=== PATIENT | female | born 1965 | race Caucasian/White ===

== ENCOUNTER 2016-10-28 12:38 | Emergency (ER) | payer MEDICARE, MEDICAID ==
[~2016-10-28] VITALS: Ht 165.1 cm; Wt 79.4 kg
[~2016-10-28 12:38] MED LIST: BACL-63 PO; BENZ1TAB2 PO; DIVA500T12 PO; LEVAAER4; LEVO100T8 PO; OMEP20CA74 PO; PAROXETINE 30 MG PO; PRIM250T29 PO; RISP0.5T21; RISP0.5T45; TOPI50TA53 PO
[2016-10-28 13:48] VITALS: BP 98/58
== END 2016-10-28 14:12 | disposition home or self-care (01) ==
LOC: ER 12:43
DX: R56.9 Unspecified convulsions (principal); J45.909 Unspecified asthma, uncomplicated; F17.210 Nicotine dependence, cigarettes, uncomplicated; Z98.51 Tubal ligation status; Z88.0 Allergy status to penicillin; Z88.1 Allergy status to other antibiotic agents; Z91.041 Radiographic dye allergy status; Z79.899 Other long term (current) drug therapy; Z90.710 Acquired absence of both cervix and uterus

== ENCOUNTER 2017-03-27 11:16 | Emergency (ER) | payer OTHER, MEDICAID ==
[~2017-03-27] VITALS: Ht 162.6 cm; Wt 78.0 kg
[~2017-03-27 11:16] MED LIST changes: +RISP0.5T20; -RISP0.5T21
[2017-03-27 12:04] LABS: Urine WBC None Seen /hpf (0 - 5)
[2017-03-27 12:12] LABS: Basophils # (auto) 0 uL; Basophils % (auto) 0.4 % (0.0-2.0); Eosinophils # (auto) 0.3 uL; Eosinophils % (auto) 4.5 % (0.0-7.0); Hematocrit 43.5 % (36.0-46.0); Hemoglobin 14.5 g/dL (12.2-16.2); Lymphocytes # (auto) 2.6 uL; Lymphocytes % (auto) 43.6 % (10.0-50.0); Mean Corpuscular Hemoglobin 31.8 pg (28.0-32.0); Mean Corpuscular Hgb Conc. 33.2 g/dL (32.0-36.0); Mean Corpuscular Volume 95.6 fL (80.0-100.0); Monocytes # (auto) 0.5 uL; Monocytes % (auto) 8.3 % (0.0-12.0); Neutrophils # (auto) 2.6 uL; Neutrophils % (auto) 43.2 % (37.0-80.0); Nucleated Red Blood Cells % 0.6 %; Platelet Count (auto) 185 10^3/uL (140-450); Red Blood Cells 4.56 10^6/uL (4.0-5.20); Red Cell Distribution Width 14.6 % (11.8-14.3)
[2017-03-27 12:21] LABS: Urine Bacteria NONE SEEN /hpf (None Seen); Urine Blood Negative /uL (Negative)
[2017-03-27 12:36] LABS: Alanine Aminotransferase 27 U/L (13-56); Albumin 3.7 g/dL (3.4-5.0); Anion Gap 8 (5-15); Aspartate Aminotransferase 23 U/L (15-37); BUN/Creatinine Ratio 13.3; Blood Urea Nitrogen 10 mg/dL (7-18); Calcium 8.9 mg/dL (8.5-10.1); Carbon Dioxide 22 mmol/L (21-32); Chloride 111 mmol/L (98-107); GFR African American 105 mL/min; GFR Non-African American 87 mL/min; Glucose 95 mg/dL (74-106); Potassium 4.2 mmol/L (3.5-5.1); Sodium 141 mmol/L (136-145)
[2017-03-27 12:41] LABS: Alkaline Phosphatase 81 U/L (45-117); Bilirubin, Total 0.3 mg/dL (0.2-1.0); Total Protein 6.9 g/dL (6.4-8.2)
[2017-03-27 13:30] VITALS: BP 119/77
== END 2017-03-27 13:55 | disposition home or self-care (01) ==
LOC: ER 11:16
DX: F41.8 Other specified anxiety disorders (principal); K64.8 Other hemorrhoids; J45.909 Unspecified asthma, uncomplicated; F17.210 Nicotine dependence, cigarettes, uncomplicated; Z88.0 Allergy status to penicillin; Z86.73 Personal history of transient ischemic attack (TIA), and cerebral infarction without residual deficits; Z88.1 Allergy status to other antibiotic agents; Z91.041 Radiographic dye allergy status; Z79.899 Other long term (current) drug therapy
CPT/HCPCS: 36415; 74176; 80053; 81001; 84484; 85025

== ENCOUNTER 2017-04-30 16:09 | Inpatient (IN) | payer OTHER, MEDICAID ==
[~2017-04-30] VITALS: Ht 165.1 cm; Wt 79.5 kg
[2017-04-30 04:39] VITALS: BP 115/68
[2017-04-30 17:12] LABS: Basophils # (auto) 0.1 uL; Basophils % (auto) 0.9 % (0.0-2.0); Eosinophils # (auto) 0.3 uL; Eosinophils % (auto) 3.1 % (0.0-7.0); Hematocrit 44.3 % (36.0-46.0); Lymphocytes # (auto) 5.4 uL; Mean Corpuscular Hemoglobin 32.5 pg (28.0-32.0); Mean Corpuscular Hgb Conc. 33.8 g/dL (32.0-36.0); Mean Corpuscular Volume 96.3 fL (80.0-100.0); Monocytes # (auto) 0.6 uL; Monocytes % (auto) 6.8 % (0.0-12.0); Neutrophils # (auto) 3.1 uL; Neutrophils % (auto) 32.9 % (37.0-80.0); Nucleated Red Blood Cells % 0.2 %; Platelet Count (auto) 201 10^3/uL (140-450); Red Cell Distribution Width 14.2 % (11.8-14.3); White Blood Cell 9.6 10^3/uL (4.4-10.8)
[2017-04-30 17:18] LABS: Lymphocytes % (auto) 56.3 % (10.0-50.0)
[2017-04-30 17:37] LABS: Albumin 3.7 g/dL (3.4-5.0); BUN/Creatinine Ratio 19.8; Bilirubin, Total 0.2 mg/dL (0.2-1.0); Calcium 8.1 mg/dL (8.5-10.1); Potassium 3.9 mmol/L (3.5-5.1)
[2017-04-30 18:07] LABS: Salicylate < 1.7 mg/dL (2.8-20.0)
[2017-04-30] MEDS ORDERED: ONDANSETRON HCL 4 MG/2 ML VIAL IV ONE (18:45)
[2017-04-30 18:50] LABS: Urine Bacteria FEW /hpf (None Seen); Urine Blood Negative /uL (Negative); Urine Specific Gravity 1.009 (1.001-1.035); Urine WBC 11 /hpf (0 - 5)
[2017-04-30 19:23] LABS: Alcohol, Urine < 3.0 mg/dL (0-5); Amphetamine Screen, Urine NEGATIVE (NEGATIVE); Barbiturate Scree,Urine POSITIVE (NEGATIVE); Benzodiazephine Screen, Urine NEGATIVE (NEGATIVE); Cannabinoid Screen, Urine NEGATIVE (NEGATIVE); Cocaine Screen, Urine NEGATIVE (NEGATIVE); Opiate Scree,Urine POSITIVE (NEGATIVE); Phencyclidine Screen, Urine NEGATIVE (NEGATIVE)
[2017-04-30 21:11] LABS: Valproic Acid (Depakene) 58.4 ug/mL (50-100)
[2017-04-30 22:42] LABS: Salicylate < 1.7 mg/dL (2.8-20.0)
[2017-04-30 22:54] LABS: Acetaminophen 46.9 ug/mL (10-30)
[2017-04-30] MEDS ORDERED: ONDANSETRON HCL 4 MG/2 ML VIAL IV PRN (23:00)
[2017-04-30] MEDS ORDERED: D5W 5% IV ONE (23:30)
[2017-04-30] MEDS ORDERED: ACETYLCYSTEINE IV ONE (23:30)
[2017-04-30] MEDS ORDERED: ACETYLCYSTEINE 200MG/ML IV SOLN 30ML IV ONE (23:57)
[2017-05-01] MEDS ORDERED: LORazepam 2MG/ML-1ML VIAL IV PRN
[2017-05-01] MEDS ORDERED: cefTRIAXone 1GM/10ml IVPUSH 10 ML IV ONE
[2017-05-01] MEDS ORDERED: D5W 5% IV ONE (00:30)
[2017-05-01] MEDS ORDERED: ACETYLCYSTEINE IV ONE (00:30)
[2017-05-01] MEDS ORDERED: LACTULOSE 20Gm/30ML SOLN PO ONE (00:45)
[2017-05-01 01:37] LABS: Valproic Acid (Depakene) 64.4 ug/mL (50-100)
[2017-05-01 02:44] LABS: Basophils # (auto) 0.1 uL; Basophils % (auto) 1.3 % (0.0-2.0); Eosinophils # (auto) 0.2 uL; Eosinophils % (auto) 2.1 % (0.0-7.0); Hematocrit 39.3 % (36.0-46.0); Hemoglobin 13.4 g/dL (12.2-16.2); Lymphocytes # (auto) 1.9 uL; Lymphocytes % (auto) 20.1 % (10.0-50.0); Mean Corpuscular Hemoglobin 32.1 pg (28.0-32.0); Mean Corpuscular Volume 94.3 fL (80.0-100.0); Monocytes # (auto) 0.3 uL; Monocytes % (auto) 3.3 % (0.0-12.0); Neutrophils # (auto) 6.9 uL; Neutrophils % (auto) 73.2 % (37.0-80.0); Platelet Count (auto) 143 10^3/uL (140-450); Red Blood Cells 4.17 10^6/uL (4.0-5.20); Red Cell Distribution Width 13.9 % (11.8-14.3); White Blood Cell 9.4 10^3/uL (4.4-10.8)
[2017-05-01 03:07] LABS: Acetaminophen 10.3 ug/mL (10-30); Salicylate < 1.7 mg/dL (2.8-20.0)
[2017-05-01 03:08] LABS: Albumin 2.9 g/dL (3.4-5.0); BUN/Creatinine Ratio 17.5; Bilirubin, Total 0.3 mg/dL (0.2-1.0); Calcium 7.3 mg/dL (8.5-10.1); Potassium 4.1 mmol/L (3.5-5.1); Total Protein 5.6 g/dL (6.4-8.2)
[2017-05-01] MEDS ORDERED: D5W 5% IV SCH ×2 (04:30→07:15)
[2017-05-01] MEDS ORDERED: ACETYLCYSTEINE IV SCH ×2 (04:30→07:15)
[2017-05-01 04:47] LABS: Valproic Acid (Depakene) 44.6 ug/mL (50-100)
[2017-05-01] MEDS: LEVOTHYROXINE SODIUM 100 MCG TAB PO SCH (06:59)
[2017-05-01 08:00] VITALS: BP 118/43
[2017-05-01 08:09] LABS: BUN/Creatinine Ratio 15.7; Bilirubin, Total 0.3 mg/dL (0.2-1.0); Calcium 7.8 mg/dL (8.5-10.1); Potassium 3.9 mmol/L (3.5-5.1); Total Protein 6.2 g/dL (6.4-8.2)
[2017-05-01 12:00] VITALS: BP 102/40
[2017-05-01] MEDS ORDERED: OXYB15TA12 PO (13:09)
[2017-05-01] MEDS ORDERED: OXYC325T14 PO (13:09)
[2017-05-01] MEDS ORDERED: IBUP600T27 PO (13:09)
[2017-05-01 15:44] VITALS: BP 93/50
[2017-05-01 20:00] VITALS: BP 92/49
[2017-05-01] MEDS ORDERED: cefTRIAXone 1GM/10ml IVPUSH 10 ML IV SCH (22:00)
[2017-05-01 22:45] VITALS: BP 92/46
[2017-05-02 05:22] VITALS: BP 81/48
[2017-05-02 06:19] VITALS: BP 116/52
[2017-05-02] MEDS: LEVOTHYROXINE SODIUM 100 MCG TAB PO SCH (06:44)
[2017-05-02 09:00] VITALS: BP 94/57
[2017-05-02] MEDS: OXYBUTYNIN CHL 5 MG TAB PO SCH ×2 (12:45→21:36)
[2017-05-02 13:00] VITALS: BP 96/58
[2017-05-02 17:00] VITALS: BP 99/53
[2017-05-02 22:00] VITALS: BP 103/61
[2017-05-03 06:00] VITALS: BP 101/61
[2017-05-03] MEDS: LEVOTHYROXINE SODIUM 100 MCG TAB PO SCH (06:35)
[2017-05-03 08:22] VITALS: BP 108/64
[2017-05-03] MEDS: OXYBUTYNIN CHL 5 MG TAB PO SCH (09:42)
[2017-05-03 13:51] VITALS: BP 101/69
== END 2017-05-03 21:39 | disposition psychiatric hospital, planned readmission (93) | DRG 917 ==
LOC: EDBD 16:09 → ER 16:09 → OVERFLOW 16:10 → DOU IN ICU 23:50 → EAST 05-01 22:29
PROVIDERS: ADMIT Nurse Practitioner Family; ATTEND Internal Medicine
DX: T39.1X2A Poisoning by 4-Aminophenol derivatives, intentional self-harm, initial encounter (principal); G92 Toxic encephalopathy; N39.0 Urinary tract infection, site not specified; K72.90 Hepatic failure, unspecified without coma; E03.9 Hypothyroidism, unspecified; F10.10 Alcohol abuse, uncomplicated; F17.210 Nicotine dependence, cigarettes, uncomplicated; F31.9 Bipolar disorder, unspecified; J45.909 Unspecified asthma, uncomplicated; Z79.899 Other long term (current) drug therapy; Y92.89 Other specified places as the place of occurrence of the external cause; Z85.43 Personal history of malignant neoplasm of ovary; Z86.73 Personal history of transient ischemic attack (TIA), and cerebral infarction without residual deficits; Z90.710 Acquired absence of both cervix and uterus
CPT/HCPCS: 36415; 80053; 80164; 80184; 80307; 80329; 81001; 82140; 84443; 85025; 87081; 87086; 93005; 94761; 96365; 96375; J2405; J7060

== ENCOUNTER 2020-12-25 07:11 | Emergency (ER) | payer OTHER, MEDICAID ==
[~2020-12-25] VITALS: Ht 162.6 cm; Wt 76.2 kg
[~2020-12-25 07:11] MED LIST changes: -BACL-63 PO; -LEVAAER4; +OXYB15TA12 PO; -RISP0.5T20; -TOPI50TA53 PO
[2020-12-25 07:28] VITALS: BP 105/41
[2020-12-25] MEDS ORDERED: cefTRIAXone 1GM/50ML D5W 50 ML IV ONE (07:45)
[2020-12-25] MEDS ORDERED: CLINDAMYCIN 600MG IV 50 ML IV ONE (07:45)
== END 2020-12-25 09:17 | disposition home or self-care (01) ==
LOC: ER 07:11
DX: L03.115 Cellulitis of right lower limb (principal); J45.909 Unspecified asthma, uncomplicated; E03.9 Hypothyroidism, unspecified; Z86.73 Personal history of transient ischemic attack (TIA), and cerebral infarction without residual deficits; Z90.710 Acquired absence of both cervix and uterus; Z87.891 Personal history of nicotine dependence; Z79.899 Other long term (current) drug therapy; Z88.0 Allergy status to penicillin; Z88.1 Allergy status to other antibiotic agents; Z88.8 Allergy status to other drugs, medicaments and biological substances
CPT/HCPCS: 96365; 96367; 99284; J0696; J3490

== ENCOUNTER 2020-12-26 08:05 | Emergency (ER) | payer OTHER, MEDICAID ==
[~2020-12-26] VITALS: Ht 162.6 cm; Wt 76.2 kg
[2020-12-26] MEDS ORDERED: CLINDAMYCIN 900MG IV 50 ML IV ONE (12:15)
[2020-12-26 12:45] VITALS: BP 110/68
== END 2020-12-26 12:48 | disposition home or self-care (01) ==
LOC: ER 08:05
DX: L03.115 Cellulitis of right lower limb (principal); J45.909 Unspecified asthma, uncomplicated; Z98.51 Tubal ligation status; Z90.710 Acquired absence of both cervix and uterus; Z88.1 Allergy status to other antibiotic agents; Z88.0 Allergy status to penicillin
CPT/HCPCS: 96374; 99283; J3490

== ENCOUNTER 2021-10-24 17:42 | Inpatient (IN) | payer OTHER, MEDICAID ==
[~2021-10-24] VITALS: Ht 162.6 cm; Wt 76.6 kg
[2021-10-24 18:34] LABS: Basophils # (auto) 0 10 ^3/uL (0-0.2); Basophils % (auto) 0.6 % (0.0-2.0); Eosinophils # (auto) 0.1 10 ^3/uL (0-0.8); Eosinophils % (auto) 2.4 % (0.0-7.0); Hematocrit 40.8 % (36.0-46.0); Hemoglobin 13.5 g/dL (12.2-16.2); Lymphocytes # (auto) 2.4 10 ^3/uL (0.4-5.4); Lymphocytes % (auto) 40.2 % (10.0-50.0); Mean Corpuscular Hemoglobin 29.4 pg (28.0-32.0); Mean Corpuscular Hgb Conc. 33.1 g/dL (32.0-36.0); Mean Corpuscular Volume 88.7 fL (80.0-100.0); Monocytes # (auto) 0.4 10 ^3/uL (0-1.3); Monocytes % (auto) 6.9 % (0.0-12.0); Neutrophils % (auto) 49.9 % (37.0-80.0); Red Cell Distribution Width 13.5 % (11.8-14.3)
[2021-10-24 19:08] LABS: Albumin 4.1 g/dL (3.4-5.0); BUN/Creatinine Ratio 13.8; Calcium 8.6 mg/dL (8.5-10.1); Potassium 3.6 mmol/L (3.5-5.1)
[2021-10-24 19:11] LABS: Bilirubin, Total 0.5 mg/dL (0.2-1.0); Total Protein 7.3 g/dL (6.4-8.2)
[2021-10-24] MEDS ORDERED: ASPirin 81 mg TAB PO ONE (20:15)
[2021-10-24] MEDS ORDERED: NITROGLYCERIN 0.4 MG SL TAB SL PRN (22:00)
[2021-10-24] MEDS ORDERED: ACETAMINOPHEN 325 MG TAB PO PRN (22:00)
[2021-10-24] MEDS ORDERED: ONDANSETRON HCL 4 MG/2 ML VIAL IV PRN (22:00)
[2021-10-24] MEDS ORDERED: TEMAZEPAM 15 MG CAP PO PRN (22:00)
[2021-10-25] MEDS: ATORVASTATIN 20 MG TAB PO SCH ×2 (00:43→22:32)
[2021-10-25] MEDS: MORPHINE SULFATE INJ 2 MG/ml SYRG IV PRN (01:00)
[2021-10-25] MEDS ORDERED: SODIUM CHLORIDE 0.9% 500 ML IV ONE ×2 (03:30→11:00)
[2021-10-25 05:09] LABS: BUN/Creatinine Ratio 12.9; Calcium 8.1 mg/dL (8.5-10.1); Potassium 3.4 mmol/L (3.5-5.1)
[2021-10-25 05:10] LABS: Basophils # (auto) 0 10 ^3/uL (0-0.2); Basophils % (auto) 0.3 % (0.0-2.0); Eosinophils # (auto) 0.2 10 ^3/uL (0-0.8); Eosinophils % (auto) 3.3 % (0.0-7.0); Hematocrit 40.2 % (36.0-46.0); Hemoglobin 13.7 g/dL (12.2-16.2); Lymphocytes # (auto) 2.5 10 ^3/uL (0.4-5.4); Lymphocytes % (auto) 38.9 % (10.0-50.0); Mean Corpuscular Hemoglobin 30.1 pg (28.0-32.0); Mean Corpuscular Hgb Conc. 34.1 g/dL (32.0-36.0); Mean Corpuscular Volume 88.3 fL (80.0-100.0); Monocytes # (auto) 0.6 10 ^3/uL (0-1.3); Monocytes % (auto) 9.3 % (0.0-12.0); Neutrophils # (auto) 3.1 10 ^3/uL (1.6-8.6); Neutrophils % (auto) 48.2 % (37.0-80.0); Nucleated Red Blood Cells % 0.2 %; Red Blood Cells 4.55 10^6/uL (4.0-5.20); Red Cell Distribution Width 13.7 % (11.8-14.3); White Blood Cell 6.4 10^3/uL (4.4-10.8)
[2021-10-25] MEDS: LEVOTHYROXINE SODIUM 100 MCG TAB PO SCH (07:00)
[2021-10-25] MEDS ORDERED: SODIUM CHLORIDE 0.9% 1,000 ML IV ONE ×2 (09:00→13:00)
[2021-10-25] MEDS ORDERED: LISINOPRIL 5 MG TAB PO SCH (10:00)
[2021-10-25] MEDS ORDERED: PANTOPRAZOLE 40 MG TAB PO SCH (10:00)
[2021-10-25] MEDS: ASPirin 81 mg TAB PO SCH (10:51)
[2021-10-25] MEDS: ENOXAPARIN SOD 40 MG/0.4 ML SYRINGE SC SCH (10:54)
[2021-10-25] MEDS ORDERED: POTASSIUM CHL 20 Meq TABLET PO ONE (11:15)
[2021-10-25 13:18] LABS: Cholesterol 144 mg/dL (< 200)
[2021-10-25 13:22] LABS: HDL Cholesterol 69 mg/dL (40-59); LDL Cholesterol 62 mg/dL (< 100); Triglycerides 104 mg/dL (< 150)
[2021-10-25] MEDS ORDERED: OXCA300T50 OR (15:49)
[2021-10-25] MEDS ORDERED: QUET50TA PO (15:49)
[2021-10-25] MEDS ORDERED: CHOLPOW45 XX (15:49)
[2021-10-25] MEDS ORDERED: HYDR-3682 PO (15:49)
[2021-10-25] MEDS ORDERED: BUSP5TAB51 PO (15:49)
[2021-10-25] MEDS ORDERED: ATOR10TA52 PO (15:49)
[2021-10-25 17:17] VITALS: BP 99/58
[2021-10-25 22:00] VITALS: BP 92/46
[2021-10-25] MEDS: ALBUMIN 25% 100 ML IV SCH (22:32)
[2021-10-25 23:20] LABS: Urine Bacteria NONE SEEN /hpf (None Seen); Urine Blood Negative /uL (Negative); Urine Specific Gravity 1.005 (1.001-1.035); Urine WBC 1 /hpf (0 - 5)
[2021-10-26] MEDS: ALBUMIN 25% 100 ML IV SCH (01:06)
[2021-10-26 05:00] VITALS: BP 109/52
[2021-10-26] MEDS: LEVOTHYROXINE SODIUM 100 MCG TAB PO SCH (06:27)
[2021-10-26] MEDS ORDERED: GIVE UN DILUTED IV STA (07:47)
[2021-10-26] MEDS ORDERED: ADENOSINE IV STA (07:47)
[2021-10-26] MEDS ORDERED: ADENOSINE 64 MG in GIVE UN-DILUTED 0 ML IV ONE (08:45)
[2021-10-26 09:00] VITALS: BP 114/48
[2021-10-26] MEDS: ASPirin 81 mg TAB PO SCH (10:27)
[2021-10-26] MEDS: ENOXAPARIN SOD 40 MG/0.4 ML SYRINGE SC SCH (10:28)
[2021-10-26 12:30] VITALS: BP 102/54
[2021-10-26] MEDS ORDERED: ATOR10TA PO (12:45)
[2021-10-26] MEDS: MORPHINE SULFATE INJ 2 MG/ml SYRG IV PRN (15:42)
[2021-10-26 16:50] VITALS: BP 99/58
[2021-10-26] MEDS ORDERED: QUEtiapine FUMARATE 25 MG TAB PO SCH (18:00)
[2021-10-26] MEDS ORDERED: ATORVASTATIN 20 MG TAB PO SCH (18:00)
[2021-10-26 19:10] VITALS: BP 99/58
[2021-10-26] MEDS ORDERED: PRIMIDONE 50 MG TAB PO SCH (22:00)
[2021-10-26] MEDS ORDERED: PARoxetine 20 MG TAB PO SCH (22:00)
[2021-10-26] MEDS ORDERED: busPIRone HCL 10 MG TAB PO SCH (22:00)
[2021-10-26] MEDS ORDERED: BENZTROPINE MESY 0.5 MG TAB PO SCH (22:00)
[2021-10-26] MEDS ORDERED: hydrOXYzine 25 MG TAB or CAP PO SCH (22:00)
[2021-10-27] MEDS ORDERED: OMEPRAZOLE 20MG/10ML ORAL SUSP PO SCH (10:00)
[2021-10-27] MEDS ORDERED: OXYBUTYNIN CHL 5 MG TAB PO SCH (10:00)
[2021-10-27] MEDS ORDERED: PATIENTS OWN MEDICATION (Atorvastatin Calcium 1 TAB) PO SCH (10:00)
== END 2021-10-26 19:55 | disposition home or self-care (01) | DRG 206 ==
LOC: ER 17:45 → TELE 21:59 → TELE-CENTR 10-25 15:00
PROVIDERS: ADMIT Nurse Practitioner; ATTEND Internal Medicine
DX: M94.0 Chondrocostal junction syndrome [Tietze] (principal); R07.89 Other chest pain; E78.5 Hyperlipidemia, unspecified; J45.909 Unspecified asthma, uncomplicated; Z20.822 Contact with and (suspected) exposure to COVID-19; E07.9 Disorder of thyroid, unspecified; F25.9 Schizoaffective disorder, unspecified; Z87.891 Personal history of nicotine dependence; Z85.43 Personal history of malignant neoplasm of ovary; Z86.73 Personal history of transient ischemic attack (TIA), and cerebral infarction without residual deficits; Z90.710 Acquired absence of both cervix and uterus; Z88.0 Allergy status to penicillin; Z88.8 Allergy status to other drugs, medicaments and biological substances
CPT/HCPCS: 36415; 71045; 78452; 80048; 80053; 80061; 81001; 83036; 83735; 83880; 84443; 84484; 85025; 93005; 93017; 93306; 96361; 96372; 96374; G0378; J0153; P9047

== ENCOUNTER 2021-11-08 08:42 | Emergency (ER) | payer OTHER, MEDICAID ==
[~2021-11-08] VITALS: Ht 165.1 cm; Wt 75.0 kg
[2021-11-08 08:42] VITALS: BP 117/64
[~2021-11-08 08:42] MED LIST changes: +ATOR10TA PO; +ATOR10TA52 PO; +BUSP5TAB51 PO; +HYDR-3682 PO; +OXCA300T50 OR; +QUET50TA PO
[2021-11-08] MEDS ORDERED: CYCL-837 PO (13:29)
[2021-11-08] MEDS ORDERED: NAP500T PO (13:29)
[2021-11-08] MEDS ORDERED: KETOROLAC TROMETH 60MG/2ML VIAL IM ONE (13:45)
== END 2021-11-08 14:08 | disposition home or self-care (01) ==
LOC: EDBD 08:42 → ER 08:42
DX: S39.012A Strain of muscle, fascia and tendon of lower back, initial encounter (principal); E78.5 Hyperlipidemia, unspecified; J45.909 Unspecified asthma, uncomplicated; Z88.0 Allergy status to penicillin; Z88.1 Allergy status to other antibiotic agents; Z86.73 Personal history of transient ischemic attack (TIA), and cerebral infarction without residual deficits; Z98.51 Tubal ligation status; Z90.710 Acquired absence of both cervix and uterus; Z87.891 Personal history of nicotine dependence; Y04.2XXA Assault by strike against or bumped into by another person, initial encounter; Y93.89 Activity, other specified; Y92.89 Other specified places as the place of occurrence of the external cause; Y99.8 Other external cause status
CPT/HCPCS: 72100; 96372; 99283; J1885

== ENCOUNTER 2021-11-10 05:00 | Emergency (ER) | payer OTHER, MEDICAID ==
[~2021-11-10] VITALS: Ht 162.6 cm; Wt 77.0 kg
[~2021-11-10 05:00] MED LIST changes: +CYCL-837 PO; +NAP500T PO
[2021-11-10 05:57] VITALS: BP 120/65
[2021-11-10] MEDS ORDERED: HYDROcodone-ACET 5/325MG TAB PO ONE (07:30)
[2021-11-10] MEDS ORDERED: MELO7.5T9 PO (08:00)
== END 2021-11-10 08:00 | disposition home or self-care (01) ==
LOC: EDBD 05:00 → ER 05:00
DX: S76.011A Strain of muscle, fascia and tendon of right hip, initial encounter (principal); M17.11 Unilateral primary osteoarthritis, right knee; E03.9 Hypothyroidism, unspecified; E78.5 Hyperlipidemia, unspecified; J45.909 Unspecified asthma, uncomplicated; Z87.891 Personal history of nicotine dependence; Z90.710 Acquired absence of both cervix and uterus; Z79.899 Other long term (current) drug therapy; Z88.0 Allergy status to penicillin; Z88.1 Allergy status to other antibiotic agents; Z88.8 Allergy status to other drugs, medicaments and biological substances; W18.39XA Other fall on same level, initial encounter; Y93.89 Activity, other specified; Y92.89 Other specified places as the place of occurrence of the external cause; Y99.8 Other external cause status
CPT/HCPCS: 73502; 73562

== ENCOUNTER 2021-12-04 14:25 | Emergency (ER) | payer OTHER, MEDICAID ==
[~2021-12-04] VITALS: Ht 162.6 cm; Wt 58.9 kg
[~2021-12-04 14:25] MED LIST changes: +MELO7.5T9 PO
[2021-12-04 20:14] LABS: Basophils # (auto) 0 10 ^3/uL (0-0.2); Basophils % (auto) 0.1 % (0.0-2.0); Eosinophils # (auto) 0.3 10 ^3/uL (0-0.8); Eosinophils % (auto) 3.7 % (0.0-7.0); Hematocrit 43.7 % (36.0-46.0); Hemoglobin 14.9 g/dL (12.2-16.2); Lymphocytes # (auto) 2.3 10 ^3/uL (0.4-5.4); Lymphocytes % (auto) 27.3 % (10.0-50.0); Mean Corpuscular Hemoglobin 30.2 pg (28.0-32.0); Mean Corpuscular Volume 88.7 fL (80.0-100.0); Monocytes # (auto) 0.4 10 ^3/uL (0-1.3); Monocytes % (auto) 5.2 % (0.0-12.0); Neutrophils # (auto) 5.3 10 ^3/uL (1.6-8.6); Neutrophils % (auto) 63.7 % (37.0-80.0); Nucleated Red Blood Cells % 0.1 %; Red Blood Cells 4.93 10^6/uL (4.0-5.20); Red Cell Distribution Width 14.1 % (11.8-14.3); White Blood Cell 8.3 10^3/uL (4.4-10.8)
[2021-12-04 20:24] LABS: INR 0.9 (0.9-1.15)
[2021-12-04] MEDS ORDERED: CEPH-322 PO (20:34)
[2021-12-04 20:41] LABS: Anion Gap 15 (5-15); Blood Urea Nitrogen 14 mg/dL (7-18); Carbon Dioxide 21 mmol/L (21-32); Chloride 103 mmol/L (98-107); Glucose 79 mg/dL (74-106); Potassium 3.5 mmol/L (3.5-5.1); Sodium 139 mmol/L (136-145)
[2021-12-04 20:42] LABS: Alanine Aminotransferase 60 U/L (13-56); Alkaline Phosphatase 112 U/L (45-117); Aspartate Aminotransferase 52 U/L (15-37); BUN/Creatinine Ratio 16.9; Bilirubin, Total 0.5 mg/dL (0.2-1.0); Calcium 8.2 mg/dL (8.5-10.1); GFR African American 91 mL/min; GFR Non-African American 76 mL/min; Total Protein 7.8 g/dL (6.4-8.2)
[2021-12-04 21:30] VITALS: BP 102/59
== END 2021-12-04 22:20 | disposition home or self-care (01) ==
LOC: EDBD 14:25 → ER 14:25
DX: L03.115 Cellulitis of right lower limb (principal)
CPT/HCPCS: 36415; 73590; 80053; 84702; 85025; 85610; 93005; 93971

== ENCOUNTER 2021-12-07 22:05 | Inpatient (IN) | payer OTHER, MEDICAID ==
[~2021-12-07] VITALS: Ht 165.1 cm; Wt 80.5 kg
[~2021-12-07 22:05] MED LIST changes: +CEPH-322 PO
[2021-12-08 00:03] LABS: Basophils # (auto) 0 10 ^3/uL (0-0.2); Basophils % (auto) 0.1 % (0.0-2.0); Eosinophils # (auto) 0.2 10 ^3/uL (0-0.8); Hematocrit 35.5 % (36.0-46.0); Hemoglobin 12.2 g/dL (12.2-16.2); Lymphocytes # (auto) 2.3 10 ^3/uL (0.4-5.4); Lymphocytes % (auto) 22.6 % (10.0-50.0); Mean Corpuscular Hemoglobin 30.4 pg (28.0-32.0); Mean Corpuscular Hgb Conc. 34.3 g/dL (32.0-36.0); Mean Corpuscular Volume 88.6 fL (80.0-100.0); Monocytes # (auto) 0.7 10 ^3/uL (0-1.3); Monocytes % (auto) 6.4 % (0.0-12.0); Neutrophils # (auto) 7.1 10 ^3/uL (1.6-8.6); Neutrophils % (auto) 68.9 % (37.0-80.0); Red Blood Cells 4.01 10^6/uL (4.0-5.20); Red Cell Distribution Width 14.1 % (11.8-14.3); White Blood Cell 10.3 10^3/uL (4.4-10.8)
[2021-12-08 00:16] LABS: Urine Bacteria NONE SEEN /hpf (None Seen); Urine Blood Negative /uL (Negative); Urine Specific Gravity 1.007 (1.001-1.035); Urine WBC <1 /hpf (0 - 5)
[2021-12-08 00:18] LABS: Albumin 3.2 g/dL (3.4-5.0); Calcium 8.5 mg/dL (8.5-10.1); Potassium 3.9 mmol/L (3.5-5.1)
[2021-12-08 00:20] LABS: BUN/Creatinine Ratio 9.6
[2021-12-08 00:23] LABS: Bilirubin, Total 0.2 mg/dL (0.2-1.0)
[2021-12-08 00:27] LABS: Acetaminophen 2.4 ug/mL (10-30); Salicylate < 1.7 mg/dL (2.8-20.0)
[2021-12-08] MEDS ORDERED: SODIUM CHLORIDE 0.9% 500 ML IV ONE (00:30)
[2021-12-08 04:28] LABS: Urine Bacteria NONE SEEN /hpf (None Seen); Urine Blood Negative /uL (Negative); Urine Hyaline Cast FEW /lpf (0 - 2); Urine Specific Gravity 1.011 (1.001-1.035); Urine WBC 26 /hpf (0 - 5); Urine WBC Clumps PRESENT /hpf (None Seen)
[2021-12-08 05:39] LABS: Basophils # (auto) 0 10 ^3/uL (0-0.2); Basophils % (auto) 0.4 % (0.0-2.0); Eosinophils # (auto) 0.1 10 ^3/uL (0-0.8); Eosinophils % (auto) 1.3 % (0.0-7.0); Hematocrit 35.7 % (36.0-46.0); Hemoglobin 12.3 g/dL (12.2-16.2); Lymphocytes % (auto) 18.3 % (10.0-50.0); Mean Corpuscular Hemoglobin 30.5 pg (28.0-32.0); Mean Corpuscular Hgb Conc. 34.5 g/dL (32.0-36.0); Mean Corpuscular Volume 88.4 fL (80.0-100.0); Monocytes # (auto) 0.4 10 ^3/uL (0-1.3); Monocytes % (auto) 7.2 % (0.0-12.0); Neutrophils # (auto) 4.1 10 ^3/uL (1.6-8.6); Neutrophils % (auto) 72.8 % (37.0-80.0); Nucleated Red Blood Cells % 0.1 %; Red Blood Cells 4.04 10^6/uL (4.0-5.20); Red Cell Distribution Width 13.9 % (11.8-14.3); White Blood Cell 5.6 10^3/uL (4.4-10.8)
[2021-12-08] MEDS ORDERED: SODIUM CHLORIDE 0.9% 1,000 ML IV ONE ×3 (05:45→09:30)
[2021-12-08 08:43] LABS: BUN/Creatinine Ratio 10.5; Potassium 3.9 mmol/L (3.5-5.1)
[2021-12-08] MEDS: ASPirin 325 MG TAB PO SCH (09:17)
[2021-12-08] MEDS: CLOPIDOGREL BISULFATE 75 MG TAB PO SCH (09:18)
[2021-12-08] MEDS ORDERED: NITROGLYCERIN 0.4 MG SL TAB SL PRN (09:30)
[2021-12-08] MEDS ORDERED: MORPHINE SULFATE INJ 2 MG/ml SYRG IV PRN (09:30)
[2021-12-08 09:58] LABS: Urine Bacteria None Seen /hpf (None Seen); Urine WBC None Seen /hpf (0 - 5)
[2021-12-08] MEDS ORDERED: ASPirin 325 MG TAB PO SCH (10:00)
[2021-12-08] MEDS ORDERED: CLOPIDOGREL BISULFATE 75 MG TAB PO SCH (10:00)
[2021-12-08] MEDS ORDERED: ASPirin 81 mg TAB PO SCH (10:00)
[2021-12-08] MEDS: NOREPINEPHRINE 8 MG/250ML KIT 250 ML IV SCH (10:00)
[2021-12-08 10:46] LABS: Barbiturate Scree,Urine NEGATIVE (NEGATIVE); Benzodiazephine Screen, Urine POSITIVE (NEGATIVE); Cannabinoid Screen, Urine NEGATIVE (NEGATIVE); Cocaine Screen, Urine NEGATIVE (NEGATIVE); Opiate Scree,Urine NEGATIVE (NEGATIVE); Phencyclidine Screen, Urine NEGATIVE (NEGATIVE)
[2021-12-08] MEDS: PANTOPRAZOLE 40 MG/10 ML VIAL INJ IV SCH (10:48)
[2021-12-08] MEDS: ENOXAPARIN SOD 40 MG/0.4 ML SYRINGE SC SCH (10:49)
[2021-12-08 10:50] LABS: Basophils # (auto) 0 10 ^3/uL (0-0.2); Basophils % (auto) 0.5 % (0.0-2.0); Eosinophils # (auto) 0.1 10 ^3/uL (0-0.8); Hematocrit 38.2 % (36.0-46.0); Lymphocytes # (auto) 1.6 10 ^3/uL (0.4-5.4); Lymphocytes % (auto) 21.2 % (10.0-50.0); Mean Corpuscular Hemoglobin 30.3 pg (28.0-32.0); Mean Corpuscular Volume 89.1 fL (80.0-100.0); Monocytes # (auto) 0.7 10 ^3/uL (0-1.3); Monocytes % (auto) 9.2 % (0.0-12.0); Neutrophils # (auto) 5.2 10 ^3/uL (1.6-8.6); Neutrophils % (auto) 68.1 % (37.0-80.0); Red Blood Cells 4.29 10^6/uL (4.0-5.20); Red Cell Distribution Width 14.3 % (11.8-14.3); White Blood Cell 7.6 10^3/uL (4.4-10.8)
[2021-12-08 10:54] LABS: Amphetamine Screen, Urine NEGATIVE (NEGATIVE)
[2021-12-08 12:26] LABS: Albumin 2.9 g/dL (3.4-5.0); Calcium 8.3 mg/dL (8.5-10.1); Magnesium 2.2 mg/dL (1.6-2.6); Potassium 4.8 mmol/L (3.5-5.1)
[2021-12-08 12:30] LABS: BUN/Creatinine Ratio 8.9; Bilirubin, Total 0.3 mg/dL (0.2-1.0); Phosphorus 2.8 mg/dL (2.5-4.90); Total Protein 6.2 g/dL (6.4-8.2)
[2021-12-08 12:53] LABS: INR 0.98 (0.9-1.15)
[2021-12-08] MEDS ORDERED: OXCA300T26 PO (12:54)
[2021-12-08] MEDS ORDERED: ARIP1INJ2 IM (12:54)
[2021-12-08] MEDS ORDERED: BUSP10TA90 PO (12:54)
[2021-12-08] MEDS ORDERED: FLUT50SP31 EACHNOSTRI (12:54)
[2021-12-08] MEDS ORDERED: MELO1TAB73 PO (12:54)
[2021-12-08] MEDS ORDERED: MULT-1058 PO (12:54)
[2021-12-08] MEDS ORDERED: QUET25TA37 PO (12:54)
[2021-12-08] MEDS ORDERED: DIV250ER PO (12:54)
[2021-12-08] MEDS ORDERED: PRIM50TA5 PO (12:54)
[2021-12-08] MEDS ORDERED: DICY20TA PO (12:54)
[2021-12-08] MEDS ORDERED: OLAN1TAB19 PO (12:54)
[2021-12-08] MEDS ORDERED: CHOL20007 PO (12:54)
[2021-12-08] MEDS ORDERED: OXYB5TAB61 PO (12:54)
[2021-12-08] MEDS ORDERED: MULT-97 PO (13:03)
[2021-12-08] MEDS ORDERED: LORazepam 2MG/ML-1ML VIAL IV ONE (13:45)
[2021-12-08] MEDS: CLINDAMYCIN 600MG IV 50 ML IV SCH ×2 (14:18→22:00)
[2021-12-08] MEDS: hydrOXYzine 25 MG TAB or CAP PO SCH ×2 (15:28→22:00)
[2021-12-08] MEDS ORDERED: QUEtiapine FUMARATE 25 MG TAB PO SCH (18:00)
[2021-12-08] MEDS ORDERED: LORazepam 2MG/ML-1ML VIAL IM ONE (20:30)
[2021-12-08] MEDS ORDERED: HALOPERIDOL LACTATE 5 MG/ML INJ VIAL IM ONE (20:30)
[2021-12-08] MEDS ORDERED: diphenhdrAMINE HCL 50 MG/1 ML VL IM ONE (20:30)
[2021-12-08] MEDS ORDERED: BENZTROPINE MESY 0.5 MG TAB PO SCH (22:00)
[2021-12-08] MEDS ORDERED: DIVALPROEX SODIUM PO SCH (22:00)
[2021-12-08] MEDS ORDERED: PATIENTS OWN MEDICATION (Buspirone Hcl 1 TAB) PO SCH (22:00)
[2021-12-08] MEDS ORDERED: PARoxetine 20 MG TAB PO SCH (22:00)
[2021-12-08] MEDS ORDERED: ATORVASTATIN 20 MG TAB PO SCH (22:00)
[2021-12-08] MEDS: OXcarbazepine 300 MG TAB PO SCH (22:00)
[2021-12-08] MEDS ORDERED: PRIMIDONE 50 MG TAB PO SCH (22:00)
[2021-12-09] MEDS: hydrOXYzine 25 MG TAB or CAP PO SCH (06:00)
[2021-12-09] MEDS: CLINDAMYCIN 600MG IV 50 ML IV SCH ×3 (06:00→23:05)
[2021-12-09 08:07] LABS: RPR Non Reactive (Non Reactive)
[2021-12-09] MEDS ORDERED: OXYBUTYNIN CHL 5 MG TAB PO SCH (10:00)
[2021-12-09] MEDS: LEVOTHYROXINE SODIUM 100 MCG TAB PO SCH (10:00)
[2021-12-09] MEDS ORDERED: risperiDONE 1 MG TAB PO SCH (10:00)
[2021-12-09] MEDS: OXcarbazepine 300 MG TAB PO SCH ×2 (10:00→23:05)
[2021-12-09] MEDS: ASPirin 325 MG TAB PO SCH (10:00)
[2021-12-09] MEDS: CLOPIDOGREL BISULFATE 75 MG TAB PO SCH (10:00)
[2021-12-09] MEDS ORDERED: diphenhdrAMINE HCL 50 MG/1 ML VL IM ONE (10:40)
[2021-12-09] MEDS ORDERED: LORazepam 2MG/ML-1ML VIAL IM ONE (10:40)
[2021-12-09] MEDS ORDERED: LORazepam 2MG/ML-1ML VIAL ONE (10:44)
[2021-12-09] MEDS ORDERED: diphenhdrAMINE HCL 50 MG/1 ML VL ONE (10:44)
[2021-12-09] MEDS: HALOPERIDOL LACTATE 5 MG/ML INJ VIAL IV PRN ×2 (10:49→20:00)
[2021-12-09] MEDS: NOREPINEPHRINE 8 MG/250ML KIT 250 ML IV SCH (12:10)
[2021-12-09] MEDS: PANTOPRAZOLE 40 MG/10 ML VIAL INJ IV SCH (12:33)
[2021-12-09] MEDS: ENOXAPARIN SOD 40 MG/0.4 ML SYRINGE SC SCH (12:34)
[2021-12-09] MEDS: cefTRIAXone 1GM/50ML D5W 50 ML IV SCH (12:35)
[2021-12-09] MEDS ORDERED: D5W/ SOD CHL 0.9%/KCL 20MEQ 1,000 ML IV SCH (13:00)
[2021-12-09] MEDS ORDERED: D5W/SOD CHL 0.45%/KCL 20MEQ 1,000 ML IV SCH (13:00)
[2021-12-09] MEDS: D5W/SOD CHL 0.45% 1,000 ML IV SCH ×2 (13:44→21:31)
[2021-12-09] MEDS ORDERED: QUEtiapine FUMARATE 25 MG TAB PO SCH (18:00)
[2021-12-10] VITALS (89 sets, daily range): BP systolic 87–133; BP diastolic 35–84
[2021-12-10 04:23] LABS: Basophils # (auto) 0 10 ^3/uL (0-0.2); Basophils % (auto) 0.6 % (0.0-2.0); Eosinophils # (auto) 0.3 10 ^3/uL (0-0.8); Eosinophils % (auto) 4.4 % (0.0-7.0); Hemoglobin 11.8 g/dL (12.2-16.2); Lymphocytes # (auto) 2.4 10 ^3/uL (0.4-5.4); Lymphocytes % (auto) 36.3 % (10.0-50.0); Mean Corpuscular Hemoglobin 30.3 pg (28.0-32.0); Mean Corpuscular Hgb Conc. 34.6 g/dL (32.0-36.0); Mean Corpuscular Volume 87.5 fL (80.0-100.0); Monocytes # (auto) 0.6 10 ^3/uL (0-1.3); Monocytes % (auto) 8.3 % (0.0-12.0); Neutrophils # (auto) 3.4 10 ^3/uL (1.6-8.6); Neutrophils % (auto) 50.4 % (37.0-80.0); Red Blood Cells 3.89 10^6/uL (4.0-5.20); Red Cell Distribution Width 14.2 % (11.8-14.3); White Blood Cell 6.7 10^3/uL (4.4-10.8)
[2021-12-10 04:44] LABS: BUN/Creatinine Ratio 9.8; Calcium 7.8 mg/dL (8.5-10.1); Potassium 3.3 mmol/L (3.5-5.1)
[2021-12-10] MEDS: CLINDAMYCIN 600MG IV 50 ML IV SCH ×3 (06:26→21:50)
[2021-12-10] MEDS: D5W/SOD CHL 0.45% 1,000 ML IV SCH ×3 (06:33→18:53)
[2021-12-10] MEDS: NOREPINEPHRINE 8 MG/250ML KIT 250 ML IV SCH (09:30)
[2021-12-10] MEDS: cefTRIAXone 1GM/50ML D5W 50 ML IV SCH (10:16)
[2021-12-10] MEDS: PANTOPRAZOLE 40 MG/10 ML VIAL INJ IV SCH (10:16)
[2021-12-10] MEDS: OXcarbazepine 300 MG TAB PO SCH ×2 (10:16→21:51)
[2021-12-10] MEDS: ENOXAPARIN SOD 40 MG/0.4 ML SYRINGE SC SCH (10:16)
[2021-12-10] MEDS: LEVOTHYROXINE SODIUM 100 MCG TAB PO SCH (10:19)
[2021-12-10] MEDS: QUEtiapine FUMARATE 100 MG TAB PO SCH (22:34)
[2021-12-11] VITALS (76 sets, daily range): BP systolic 84–127; BP diastolic 35–96
[2021-12-11] MEDS: D5W/SOD CHL 0.45% 1,000 ML IV SCH ×2 (02:50→14:22)
[2021-12-11] MEDS: CLINDAMYCIN 600MG IV 50 ML IV SCH ×2 (06:06→14:23)
[2021-12-11] MEDS: cefTRIAXone 1GM/50ML D5W 50 ML IV SCH (09:10)
[2021-12-11] MEDS: NOREPINEPHRINE 8 MG/250ML KIT 250 ML IV SCH (09:30)
[2021-12-11] MEDS: LEVOTHYROXINE SODIUM 100 MCG TAB PO SCH (09:47)
[2021-12-11] MEDS: PANTOPRAZOLE 40 MG/10 ML VIAL INJ IV SCH (09:47)
[2021-12-11] MEDS: OXcarbazepine 300 MG TAB PO SCH ×2 (09:47→22:03)
[2021-12-11] MEDS: ENOXAPARIN SOD 40 MG/0.4 ML SYRINGE SC SCH (09:48)
[2021-12-11] MEDS ORDERED: MIDODRINE HCL 10 MG TAB PO ONE (16:45)
[2021-12-11] MEDS: QUEtiapine FUMARATE 100 MG TAB PO SCH (22:04)
[2021-12-11] MEDS: ACETAMINOPHEN 325 MG TAB PO PRN (23:00)
[2021-12-12] VITALS (23 sets, daily range): BP systolic 81–120; BP diastolic 37–86
[2021-12-12 03:36] LABS: BUN/Creatinine Ratio 12.5; Calcium 8.4 mg/dL (8.5-10.1); Potassium 3.9 mmol/L (3.5-5.1)
[2021-12-12] MEDS: MIDODRINE HCL 10 MG TAB PO SCH ×3 (07:13→18:00)
[2021-12-12] MEDS: LEVOTHYROXINE SODIUM 100 MCG TAB PO SCH (09:56)
[2021-12-12] MEDS: OXcarbazepine 300 MG TAB PO SCH ×2 (09:56→22:20)
[2021-12-12] MEDS: ENOXAPARIN SOD 40 MG/0.4 ML SYRINGE SC SCH (09:57)
[2021-12-12] MEDS: ONDANSETRON HCL 4 MG/2 ML VIAL IV PRN (16:16)
[2021-12-12] MEDS ORDERED: PROMETHAZINE HCL 25 MG/ML 1ML IV ONE (21:30)
[2021-12-12] MEDS: CEPHALEXIN 250 MG CAP PO SCH (22:19)
[2021-12-12] MEDS: busPIRone HCL 10 MG TAB PO SCH (22:20)
[2021-12-13] VITALS (10 sets, daily range): BP systolic 83–119; BP diastolic 42–80
[2021-12-13] MEDS: ONDANSETRON HCL 4 MG/2 ML VIAL IV PRN (01:41)
[2021-12-13] MEDS: MIDODRINE HCL 10 MG TAB PO SCH ×3 (05:39→18:37)
[2021-12-13] MEDS: CEPHALEXIN 250 MG CAP PO SCH ×3 (05:40→18:37)
[2021-12-13] MEDS ORDERED: OLANZapine 5 MG TAB PO SCH (10:00)
[2021-12-13] MEDS: OXcarbazepine 300 MG TAB PO SCH ×2 (10:24→22:03)
[2021-12-13] MEDS: busPIRone HCL 10 MG TAB PO SCH ×2 (10:24→22:03)
[2021-12-13] MEDS: LEVOTHYROXINE SODIUM 100 MCG TAB PO SCH (10:25)
[2021-12-13] MEDS: ENOXAPARIN SOD 40 MG/0.4 ML SYRINGE SC SCH (10:25)
[2021-12-13] MEDS: ACETAMINOPHEN 325 MG TAB PO PRN (22:04)
[2021-12-14] MEDS: CEPHALEXIN 250 MG CAP PO SCH ×4 (01:35→18:07)
[2021-12-14 05:25] VITALS: BP 127/71
[2021-12-14] MEDS: MIDODRINE HCL 10 MG TAB PO SCH ×2 (06:10→12:26)
[2021-12-14] MEDS: ACETAMINOPHEN 325 MG TAB PO PRN ×2 (06:13→21:40)
[2021-12-14 09:00] VITALS: BP 115/62
[2021-12-14] MEDS: LEVOTHYROXINE SODIUM 100 MCG TAB PO SCH (10:22)
[2021-12-14] MEDS: busPIRone HCL 10 MG TAB PO SCH ×2 (10:22→21:40)
[2021-12-14] MEDS: OXcarbazepine 300 MG TAB PO SCH ×2 (10:22→21:42)
[2021-12-14] MEDS: OLANZapine 5 MG TAB PO SCH ×2 (10:23→21:43)
[2021-12-14] MEDS: ENOXAPARIN SOD 40 MG/0.4 ML SYRINGE SC SCH (10:23)
[2021-12-14 12:25] VITALS: BP 95/59
[2021-12-14] MEDS: ONDANSETRON HCL 4 MG/2 ML VIAL IV PRN (21:39)
[2021-12-14] MEDS ORDERED: PARoxetine 20 MG TAB PO SCH (22:00)
[2021-12-14 22:04] VITALS: BP 99/52
[2021-12-15] MEDS: CEPHALEXIN 250 MG CAP PO SCH ×4 (00:31→17:52)
[2021-12-15 05:00] VITALS: BP 102/57
[2021-12-15] MEDS: ACETAMINOPHEN 325 MG TAB PO PRN ×3 (06:09→19:46)
[2021-12-15] MEDS: ONDANSETRON HCL 4 MG/2 ML VIAL IV PRN (06:15)
[2021-12-15 09:00] VITALS: BP 101/71
[2021-12-15] MEDS: ENOXAPARIN SOD 40 MG/0.4 ML SYRINGE SC SCH (10:55)
[2021-12-15] MEDS: OLANZapine 5 MG TAB PO SCH (10:56)
[2021-12-15] MEDS: OXcarbazepine 300 MG TAB PO SCH (10:57)
[2021-12-15] MEDS: busPIRone HCL 10 MG TAB PO SCH (10:57)
[2021-12-15] MEDS: LEVOTHYROXINE SODIUM 100 MCG TAB PO SCH (10:57)
[2021-12-15 13:00] VITALS: BP 100/49
[2021-12-15 17:00] VITALS: BP 99/56
[2021-12-15 22:00] VITALS: BP_SYST 112; BP_SYST 115; BP_DIAS 74
== END 2021-12-15 23:10 | DRG 917 ==
LOC: ER 22:05 → EDBD 22:05 → TELE 12-08 09:51 → ICU WEST 12-10 01:20 → WEST WING 12-13 07:01
PROVIDERS: ADMIT Nurse Practitioner Family; ATTEND Nurse Practitioner Acute Care
PROC: 05H933Z Insertion of Infusion Device into Right Brachial Vein, Percutaneous Approach (ICD-10-PCS; principal; 2021-12-09)
PROC: B54MZZA Ultrasonography of Right Upper Extremity Veins, Guidance (ICD-10-PCS; 2021-12-09)
DX: T39.312A Poisoning by propionic acid derivatives, intentional self-harm, initial encounter (principal); G92.8 Other toxic encephalopathy; E44.1 Mild protein-calorie malnutrition; I69.354 Hemiplegia and hemiparesis following cerebral infarction affecting left non-dominant side; L03.115 Cellulitis of right lower limb; N39.0 Urinary tract infection, site not specified; E78.5 Hyperlipidemia, unspecified; E03.9 Hypothyroidism, unspecified; F17.200 Nicotine dependence, unspecified, uncomplicated; J45.909 Unspecified asthma, uncomplicated; Z20.822 Contact with and (suspected) exposure to COVID-19; F20.9 Schizophrenia, unspecified; F31.9 Bipolar disorder, unspecified; G40.909 Epilepsy, unspecified, not intractable, without status epilepticus; I25.2 Old myocardial infarction; Z88.0 Allergy status to penicillin; Z91.040 Latex allergy status; Z88.8 Allergy status to other drugs, medicaments and biological substances; Z68.21 Body mass index [BMI] 21.0-21.9, adult; Z91.51 Personal history of suicidal behavior; Z90.710 Acquired absence of both cervix and uterus; Z85.43 Personal history of malignant neoplasm of ovary; Z79.899 Other long term (current) drug therapy; Z79.02 Long term (current) use of antithrombotics/antiplatelets; Y92.89 Other specified places as the place of occurrence of the external cause
CPT/HCPCS: 36415; 70450; 70551; 71045; 80048; 80053; 80061; 80164; 80307; 80320; 80329; 81001; 81015; 81025; 83605; 83735; 84100; 84439; 84443; 84484; 85025; 85610; 86592; 87081; 87086; 87426; 93005; 93971; 95819; 96360; 96361; 97110; 97116; 97530; C9113; G0378; J0696; J2405; J3490

== ENCOUNTER 2022-06-08 16:56 | Emergency (ER) | payer OTHER, MEDICAID ==
[~2022-06-08] VITALS: Ht 162.6 cm; Wt 87.8 kg
[~2022-06-08 16:56] MED LIST changes: +ARIP1INJ2 IM; -ATOR10TA PO; -BENZ1TAB2 PO; +BUSP10TA90 PO; -BUSP5TAB51 PO; +CHOL20007 PO; -CYCL-837 PO; +DICY20TA PO; +DIV250ER PO; -DIVA500T12 PO; +FLUT50SP31 EACHNOSTRI; +MELO1TAB73 PO; -MELO7.5T9 PO; +MULT-97 PO; -NAP500T PO; +OLAN1TAB19 PO; -OMEP20CA74 PO; +OXCA300T26 PO; -OXCA300T50 OR; -OXYB15TA12 PO; +OXYB5TAB61 PO; -PAROXETINE 30 MG PO; -PRIM250T29 PO; +PRIM50TA5 PO; +QUET25TA37 PO; -RISP0.5T45
[2022-06-08 18:13] VITALS: BP 105/86
[2022-06-08 18:39] LABS: Urine Bacteria FEW /hpf (None Seen); Urine Blood Negative /uL (Negative); Urine Mucus FEW (None Seen); Urine Specific Gravity 1.023 (1.001-1.035); Urine WBC 12 /hpf (0 - 5)
[2022-06-08 20:30] LABS: Basophils # (auto) 0 10 ^3/uL (0-0.2); Basophils % (auto) 0.6 % (0.0-2.0); Eosinophils # (auto) 0.5 10 ^3/uL (0-0.8); Eosinophils % (auto) 7.1 % (0.0-7.0); Hematocrit 43.1 % (36.0-46.0); Hemoglobin 14.5 g/dL (12.2-16.2); Lymphocytes # (auto) 2.6 10 ^3/uL (0.4-5.4); Lymphocytes % (auto) 36.9 % (10.0-50.0); Mean Corpuscular Hemoglobin 29.3 pg (28.0-32.0); Mean Corpuscular Hgb Conc. 33.5 g/dL (32.0-36.0); Mean Corpuscular Volume 87.6 fL (80.0-100.0); Monocytes # (auto) 0.6 10 ^3/uL (0-1.3); Monocytes % (auto) 8.5 % (0.0-12.0); Neutrophils # (auto) 3.3 10 ^3/uL (1.6-8.6); Neutrophils % (auto) 46.9 % (37.0-80.0); Nucleated Red Blood Cells % 0.1 %; Red Blood Cells 4.93 10^6/uL (4.0-5.20); Red Cell Distribution Width 14.8 % (11.8-14.3); White Blood Cell 6.9 10^3/uL (4.4-10.8)
[2022-06-08 21:33] LABS: Potassium 4.3 mmol/L (3.5-5.1)
[2022-06-08 21:39] LABS: Albumin 3.7 g/dL (3.4-5.0); BUN/Creatinine Ratio 16.5 (10.0-20.0); Bilirubin, Total 0.4 mg/dL (0.2-1.0); Calcium 9.3 mg/dL (8.5-10.1); Total Protein 7.2 g/dL (6.4-8.2)
== END 2022-06-08 23:43 | disposition home or self-care (01) ==
LOC: ER 16:56
DX: K80.20 Calculus of gallbladder without cholecystitis without obstruction (principal); K59.00 Constipation, unspecified; J45.909 Unspecified asthma, uncomplicated; E78.5 Hyperlipidemia, unspecified; Z90.710 Acquired absence of both cervix and uterus; Z98.51 Tubal ligation status; Z87.891 Personal history of nicotine dependence
CPT/HCPCS: 36415; 74176; 80053; 81001; 85025

== ENCOUNTER 2022-08-17 12:57 | Emergency (ER) | payer OTHER, MEDICAID ==
[~2022-08-17] VITALS: Ht 165.1 cm; Wt 88.0 kg
[~2022-08-17 12:57] MED LIST changes: -CEPH-322 PO; +CEPH250C PO; -MELO1TAB73 PO; +MELO7.5T7 PO; -OXCA300T26 PO; +OXCA300T4 PO; +OXYB5TAB10 PO; -OXYB5TAB61 PO
[2022-08-17 14:21] LABS: Basophils # (auto) 0 10 ^3/uL (0-0.2); Basophils % (auto) 0.5 % (0.0-2.0); Eosinophils # (auto) 0.4 10 ^3/uL (0-0.8); Eosinophils % (auto) 5.5 % (0.0-7.0); Hematocrit 41.5 % (36.0-46.0); Lymphocytes # (auto) 2.5 10 ^3/uL (0.4-5.4); Lymphocytes % (auto) 36.7 % (10.0-50.0); Mean Corpuscular Hemoglobin 29.3 pg (28.0-32.0); Mean Corpuscular Hgb Conc. 33.7 g/dL (32.0-36.0); Mean Corpuscular Volume 86.8 fL (80.0-100.0); Monocytes # (auto) 0.5 10 ^3/uL (0-1.3); Neutrophils # (auto) 3.4 10 ^3/uL (1.6-8.6); Neutrophils % (auto) 50.3 % (37.0-80.0); Nucleated Red Blood Cells % 0.1 %; Red Blood Cells 4.78 10^6/uL (4.0-5.20); Red Cell Distribution Width 13.4 % (11.8-14.3); White Blood Cell 6.7 10^3/uL (4.4-10.8)
[2022-08-17 14:43] LABS: Albumin 3.6 g/dL (3.4-5.0); BUN/Creatinine Ratio 13.5 (10.0-20.0); Calcium 8.9 mg/dL (8.5-10.1); Potassium 3.5 mmol/L (3.5-5.1)
[2022-08-17 14:46] LABS: Bilirubin, Total 0.4 mg/dL (0.2-1.0)
[2022-08-17] MEDS ORDERED: FURO1TAB31 PO (19:12)
[2022-08-17 20:23] VITALS: BP 105/75
== END 2022-08-17 20:25 | disposition home or self-care (01) ==
LOC: ER 12:57
DX: S70.01XA Contusion of right hip, initial encounter (principal); S90.211A Contusion of right great toe with damage to nail, initial encounter; R60.0 Localized edema; M19.90 Unspecified osteoarthritis, unspecified site; J45.909 Unspecified asthma, uncomplicated; F32.A Depression, unspecified; E78.5 Hyperlipidemia, unspecified; F20.9 Schizophrenia, unspecified; Z90.710 Acquired absence of both cervix and uterus; Z98.890 Other specified postprocedural states; Z87.891 Personal history of nicotine dependence; Z88.0 Allergy status to penicillin; Z88.1 Allergy status to other antibiotic agents; Z86.73 Personal history of transient ischemic attack (TIA), and cerebral infarction without residual deficits; Z91.041 Radiographic dye allergy status; Z91.040 Latex allergy status; Z79.899 Other long term (current) drug therapy; W22.09XA Striking against other stationary object, initial encounter; Y93.89 Activity, other specified; Y92.098 Other place in other non-institutional residence as the place of occurrence of the external cause; Y99.8 Other external cause status
CPT/HCPCS: 36415; 73502; 73660; 80053; 85025

== ENCOUNTER 2022-09-06 15:34 | Emergency (ER) | payer OTHER, MEDICAID ==
[~2022-09-06] VITALS: Ht 160 cm; Wt 105.0 kg
[~2022-09-06 15:34] MED LIST changes: +FURO1TAB31 PO
[2022-09-06 16:32] LABS: Basophils # (auto) 0 10 ^3/uL (0-0.2); Basophils % (auto) 0.4 % (0.0-2.0); Eosinophils # (auto) 0.5 10 ^3/uL (0-0.8); Eosinophils % (auto) 7.7 % (0.0-7.0); Hematocrit 39.8 % (36.0-46.0); Hemoglobin 13.5 g/dL (12.2-16.2); Lymphocytes # (auto) 2.4 10 ^3/uL (0.4-5.4); Lymphocytes % (auto) 35.6 % (10.0-50.0); Mean Corpuscular Hemoglobin 29.1 pg (28.0-32.0); Mean Corpuscular Volume 85.6 fL (80.0-100.0); Monocytes # (auto) 0.5 10 ^3/uL (0-1.3); Monocytes % (auto) 7.7 % (0.0-12.0); Neutrophils # (auto) 3.3 10 ^3/uL (1.6-8.6); Neutrophils % (auto) 48.6 % (37.0-80.0); Nucleated Red Blood Cells % 0.1 %; Red Blood Cells 4.65 10^6/uL (4.0-5.20); Red Cell Distribution Width 13.5 % (11.8-14.3); White Blood Cell 6.8 10^3/uL (4.4-10.8)
[2022-09-06 16:57] LABS: Albumin 3.4 g/dL (3.4-5.0); Calcium 8.7 mg/dL (8.5-10.1); Potassium 3.4 mmol/L (3.5-5.1)
[2022-09-06 17:02] LABS: Bilirubin, Total 0.5 mg/dL (0.2-1.0); Total Protein 6.5 g/dL (6.4-8.2)
[2022-09-06] MEDS ORDERED: POTASSIUM EFFERVESENT TAB 25 MEQ PO ONE (19:30)
[2022-09-06] MEDS ORDERED: DICL75TA3 PO (20:32)
[2022-09-06 21:20] LABS: Urine Bacteria FEW /hpf (None Seen); Urine Blood Negative /uL (Negative); Urine Specific Gravity 1.017 (1.001-1.035); Urine WBC 4 /hpf (0 - 5)
[2022-09-06 22:42] VITALS: BP 116/57; PULSE 83; RESP 17; TEMP 98
[2022-09-06 22:46] VITALS: O2SAT 99
== END 2022-09-06 23:05 | disposition home or self-care (01) ==
LOC: EDBD 15:34 → ER 15:34
DX: R60.0 Localized edema (principal); R07.89 Other chest pain; M79.605 Pain in left leg; M79.604 Pain in right leg; M19.90 Unspecified osteoarthritis, unspecified site; J45.909 Unspecified asthma, uncomplicated; F32.9 Major depressive disorder, single episode, unspecified; E78.5 Hyperlipidemia, unspecified; F20.9 Schizophrenia, unspecified; F17.210 Nicotine dependence, cigarettes, uncomplicated; Z86.73 Personal history of transient ischemic attack (TIA), and cerebral infarction without residual deficits; Z90.710 Acquired absence of both cervix and uterus; Z98.890 Other specified postprocedural states; Z88.0 Allergy status to penicillin; Z88.1 Allergy status to other antibiotic agents; Z91.040 Latex allergy status; Z91.041 Radiographic dye allergy status; Z79.899 Other long term (current) drug therapy
CPT/HCPCS: 36415; 71045; 80053; 81001; 83880; 84484; 85025; 85379; 85652

== ENCOUNTER 2022-09-08 15:55 | Emergency (ER) | payer OTHER, MEDICAID ==
[~2022-09-08] VITALS: Ht 167.6 cm; Wt 90.9 kg
[~2022-09-08 15:55] MED LIST changes: +DICL75TA3 PO
[2022-09-08 16:47] LABS: Basophils # (auto) 0 10 ^3/uL (0-0.2); Basophils % (auto) 0.7 % (0.0-2.0); Eosinophils # (auto) 0.5 10 ^3/uL (0-0.8); Eosinophils % (auto) 7.5 % (0.0-7.0); Hematocrit 38.6 % (36.0-46.0); Hemoglobin 13.1 g/dL (12.2-16.2); Lymphocytes # (auto) 2.5 10 ^3/uL (0.4-5.4); Lymphocytes % (auto) 39.6 % (10.0-50.0); Mean Corpuscular Hemoglobin 29.3 pg (28.0-32.0); Mean Corpuscular Hgb Conc. 34.1 g/dL (32.0-36.0); Mean Corpuscular Volume 85.8 fL (80.0-100.0); Monocytes # (auto) 0.6 10 ^3/uL (0-1.3); Monocytes % (auto) 8.8 % (0.0-12.0); Neutrophils # (auto) 2.8 10 ^3/uL (1.6-8.6); Neutrophils % (auto) 43.4 % (37.0-80.0); Nucleated Red Blood Cells % 0.1 %; Red Blood Cells 4.49 10^6/uL (4.0-5.20); White Blood Cell 6.4 10^3/uL (4.4-10.8)
[2022-09-08 17:06] LABS: Albumin 3.5 g/dL (3.4-5.0); Calcium 9.1 mg/dL (8.5-10.1); Magnesium 2.2 mg/dL (1.6-2.6); Potassium 4.1 mmol/L (3.5-5.1)
[2022-09-08 17:14] LABS: BUN/Creatinine Ratio 15.1 (10.0-20.0); Bilirubin, Total 0.5 mg/dL (0.2-1.0); Total Protein 6.6 g/dL (6.4-8.2)
[2022-09-08 20:17] VITALS: BP 109/43; PULSE 91; RESP 18; TEMP 98.3; O2SAT 94
[2022-09-08 20:35] LABS: Urine Bacteria FEW /hpf (None Seen); Urine Blood Negative /uL (Negative); Urine Hyaline Cast FEW /lpf (0 - 2); Urine Mucus FEW (None Seen); Urine WBC 6 /hpf (0 - 5)
[2022-09-08] MEDS ORDERED: NITR-87 PO (22:00)
== END 2022-09-08 22:14 | disposition home or self-care (01) ==
LOC: EDBD 15:55 → ER 15:55
DX: R60.0 Localized edema (principal); R55 Syncope and collapse; N39.0 Urinary tract infection, site not specified; T50.905A Adverse effect of unspecified drugs, medicaments and biological substances, initial encounter; J45.909 Unspecified asthma, uncomplicated; E78.5 Hyperlipidemia, unspecified; E66.01 Morbid (severe) obesity due to excess calories; Z68.32 Body mass index [BMI] 32.0-32.9, adult; Z98.51 Tubal ligation status; Z90.710 Acquired absence of both cervix and uterus; Z87.891 Personal history of nicotine dependence; Y92.89 Other specified places as the place of occurrence of the external cause
CPT/HCPCS: 36415; 80053; 81001; 83735; 84484; 85025; 93005

== ENCOUNTER 2022-09-16 14:35 | Inpatient (IN) | payer OTHER, MEDICAID ==
[~2022-09-16] VITALS: Ht 165.1 cm; Wt 92.5 kg
[~2022-09-16 14:35] MED LIST changes: +NITR-87 PO
[2022-09-16] MEDS ORDERED: SODIUM CHLORIDE 0.9% 1,000 ML IV ONE ×2 (15:00→22:15)
[2022-09-16] MEDS ORDERED: ONDANSETRON ODT 4 MG TAB PO ONE (15:00)
[2022-09-16 15:33] LABS: Basophils # (auto) 0.1 10 ^3/uL (0-0.2); Basophils % (auto) 0.7 % (0.0-2.0); Eosinophils # (auto) 0.5 10 ^3/uL (0-0.8); Eosinophils % (auto) 5.9 % (0.0-7.0); Hematocrit 42.7 % (36.0-46.0); Hemoglobin 14.6 g/dL (12.2-16.2); Lymphocytes # (auto) 2.5 10 ^3/uL (0.4-5.4); Lymphocytes % (auto) 31.7 % (10.0-50.0); Mean Corpuscular Hemoglobin 29.5 pg (28.0-32.0); Mean Corpuscular Hgb Conc. 34.1 g/dL (32.0-36.0); Mean Corpuscular Volume 86.4 fL (80.0-100.0); Monocytes # (auto) 0.6 10 ^3/uL (0-1.3); Monocytes % (auto) 7.3 % (0.0-12.0); Neutrophils # (auto) 4.3 10 ^3/uL (1.6-8.6); Neutrophils % (auto) 54.4 % (37.0-80.0); Nucleated Red Blood Cells % 0.1 %; Red Blood Cells 4.94 10^6/uL (4.0-5.20); Red Cell Distribution Width 13.6 % (11.8-14.3); White Blood Cell 7.9 10^3/uL (4.4-10.8)
[2022-09-16 15:46] LABS: Alanine Aminotransferase 31 U/L (13-56); Albumin 3.6 g/dL (3.4-5.0); Anion Gap 7 (5-15); Aspartate Aminotransferase 30 U/L (15-37); BUN/Creatinine Ratio 17.6 (10.0-20.0); Blood Urea Nitrogen 18 mg/dL (7-18); Calcium 8.7 mg/dL (8.5-10.1); Carbon Dioxide 25 mmol/L (21-32); Chloride 108 mmol/L (98-107); GFR African American 72 mL/min; GFR Non-African American 59 mL/min; Glucose 102 mg/dL (74-106); Lipase 364 U/L (73-393); Potassium 3.4 mmol/L (3.5-5.1); Sodium 140 mmol/L (136-145)
[2022-09-16 15:49] LABS: Alkaline Phosphatase 132 U/L (45-117); Bilirubin, Total 0.4 mg/dL (0.2-1.0); Total Protein 7.5 g/dL (6.4-8.2)
[2022-09-16 15:50] LABS: Urine Bacteria FEW /hpf (None Seen); Urine Blood Negative /uL (Negative); Urine Clarity HAZY (Clear); Urine Color Yellow (Yellow); Urine Mucus FEW (None Seen); Urine Protein, UAD TRACE (Negative); Urine Specific Gravity 1.022 (1.001-1.035); Urine Urobilinogen Normal (Negative); Urine WBC 21 /hpf (0 - 5); Urine pH 5.5 (5.0-8.0)
[2022-09-16] MEDS ORDERED: LEVO750T8 PO (21:12)
[2022-09-16] MEDS ORDERED: ZOFR4T PO (21:12)
[2022-09-16] MEDS ORDERED: cefTRIAXone SOD 1,000 MG VL IM ONE (21:15)
[2022-09-17] VITALS (8 sets, daily range): BP systolic 92–124; BP diastolic 43–74; PULSE 59–76; RESP 18–21; TEMP 97.4–98.3; O2SAT 96–100
[2022-09-17] MEDS ORDERED: ALBUMIN 5% 250 ML IV ONE (01:30)
[2022-09-17] MEDS ORDERED: SODIUM CHLORIDE 0.9% 1,000 ML IV ONE (01:30)
[2022-09-17] MEDS ORDERED: ONDANSETRON HCL 4 MG/2 ML VIAL IV PRN (03:15)
[2022-09-17] MEDS ORDERED: ACETAMINOPHEN 325 MG TAB PO PRN (03:15)
[2022-09-17] MEDS ORDERED: MORPHINE SULFATE INJ 2 MG/ml SYRG IV PRN (03:15)
[2022-09-17] MEDS ORDERED: NITROGLYCERIN 0.4 MG SL TAB SL PRN (03:15)
[2022-09-17 03:49] LABS: Basophils # (auto) 0.1 10 ^3/uL (0-0.2); Basophils % (auto) 0.9 % (0.0-2.0); Eosinophils # (auto) 0.5 10 ^3/uL (0-0.8); Hematocrit 40.9 % (36.0-46.0); Hemoglobin 13.7 g/dL (12.2-16.2); Lymphocytes # (auto) 2.3 10 ^3/uL (0.4-5.4); Lymphocytes % (auto) 32.3 % (10.0-50.0); Mean Corpuscular Hemoglobin 29.1 pg (28.0-32.0); Mean Corpuscular Hgb Conc. 33.5 g/dL (32.0-36.0); Mean Corpuscular Volume 87.1 fL (80.0-100.0); Monocytes # (auto) 0.5 10 ^3/uL (0-1.3); Monocytes % (auto) 7.2 % (0.0-12.0); Neutrophils # (auto) 3.8 10 ^3/uL (1.6-8.6); Neutrophils % (auto) 52.6 % (37.0-80.0); Nucleated Red Blood Cells % 0.2 %; Red Cell Distribution Width 13.9 % (11.8-14.3); White Blood Cell 7.2 10^3/uL (4.4-10.8)
[2022-09-17 04:01] LABS: Potassium 3.5 mmol/L (3.5-5.1)
[2022-09-17 04:13] LABS: Albumin 3.4 g/dL (3.4-5.0); BUN/Creatinine Ratio 15.8 (10.0-20.0); Bilirubin, Total 0.3 mg/dL (0.2-1.0); Calcium 8.5 mg/dL (8.5-10.1); Total Protein 6.9 g/dL (6.4-8.2)
[2022-09-17] MEDS: SODIUM CHLORIDE 0.9% 1,000 ML IV SCH ×2 (06:20→19:55)
[2022-09-17] MEDS: levoFLOXacin 500MG 100 ML IV SCH (06:21)
[2022-09-17] MEDS: LEVOTHYROXINE SODIUM 100 MCG TAB PO SCH (06:46)
[2022-09-17] MEDS: HYDROcodone-ACET 5/325MG TAB PO PRN (06:51)
[2022-09-17] MEDS: PHENAZOPYRIDINE HCL 100 MG TAB PO SCH ×2 (08:49→21:21)
[2022-09-17] MEDS ORDERED: hydrOXYzine 25 MG TAB or CAP PO PRN (20:00)
[2022-09-17] MEDS: traZODone HCL 50 MG TAB PO SCH (21:21)
[2022-09-17] MEDS: busPIRone HCL 10 MG TAB PO SCH (21:21)
[2022-09-18] MEDS: HYDROcodone-ACET 5/325MG TAB PO PRN ×2 (04:37→19:54)
[2022-09-18] MEDS: DOCUSATE SOD 100 MG CAP PO PRN ×2 (04:39→19:57)
[2022-09-18 05:00] VITALS: BP 102/49; PULSE 66; RESP 18; TEMP 98.3; O2SAT 93
[2022-09-18] MEDS: LEVOTHYROXINE SODIUM 100 MCG TAB PO SCH (06:25)
[2022-09-18 07:17] LABS: Basophils # (auto) 0.1 10 ^3/uL (0-0.2); Basophils % (auto) 0.8 % (0.0-2.0); Eosinophils # (auto) 0.5 10 ^3/uL (0-0.8); Eosinophils % (auto) 7.5 % (0.0-7.0); Hematocrit 40.9 % (36.0-46.0); Hemoglobin 13.6 g/dL (12.2-16.2); Lymphocytes # (auto) 2.1 10 ^3/uL (0.4-5.4); Lymphocytes % (auto) 32.2 % (10.0-50.0); Mean Corpuscular Hemoglobin 29.3 pg (28.0-32.0); Mean Corpuscular Hgb Conc. 33.2 g/dL (32.0-36.0); Mean Corpuscular Volume 88.1 fL (80.0-100.0); Monocytes # (auto) 0.5 10 ^3/uL (0-1.3); Monocytes % (auto) 8.4 % (0.0-12.0); Neutrophils # (auto) 3.3 10 ^3/uL (1.6-8.6); Neutrophils % (auto) 51.1 % (37.0-80.0); Red Blood Cells 4.65 10^6/uL (4.0-5.20); Red Cell Distribution Width 13.9 % (11.8-14.3); White Blood Cell 6.4 10^3/uL (4.4-10.8)
[2022-09-18 07:28] LABS: Albumin 3.4 g/dL (3.4-5.0); BUN/Creatinine Ratio 14.3 (10.0-20.0); Calcium 8.7 mg/dL (8.5-10.1); Potassium 3.9 mmol/L (3.5-5.1)
[2022-09-18 07:30] LABS: Bilirubin, Total 0.4 mg/dL (0.2-1.0); Total Protein 6.7 g/dL (6.4-8.2)
[2022-09-18 08:00] VITALS: BP 100/60; PULSE 68; RESP 21; TEMP 97.8; O2SAT 95
[2022-09-18 08:58] VITALS: BP 100/60; PULSE 68; RESP 21; TEMP 97.5; O2SAT 95
[2022-09-18] MEDS: busPIRone HCL 10 MG TAB PO SCH ×2 (09:57→22:16)
[2022-09-18] MEDS: levoFLOXacin 500MG 100 ML IV SCH (09:57)
[2022-09-18] MEDS: PHENAZOPYRIDINE HCL 100 MG TAB PO SCH (09:57)
[2022-09-18 11:10] LABS: Alcohol, Urine < 3.0 mg/dL (0-10); Amphetamine Screen, Urine NEGATIVE (NEGATIVE); Barbiturate Scree,Urine NEGATIVE (NEGATIVE); Benzodiazephine Screen, Urine NEGATIVE (NEGATIVE); Cannabinoid Screen, Urine NEGATIVE (NEGATIVE); Cocaine Screen, Urine NEGATIVE (NEGATIVE); Opiate Scree,Urine POSITIVE (NEGATIVE); Phencyclidine Screen, Urine NEGATIVE (NEGATIVE)
[2022-09-18 12:56] VITALS: BP 114/73; PULSE 61; RESP 21; TEMP 97.7; O2SAT 93
[2022-09-18] MEDS ORDERED: PANTOPRAZOLE 40 MG TAB PO ONE (13:15)
[2022-09-18] MEDS ORDERED: POTASSIUM CHL 10 Meq TABLET PO ONE (14:30)
[2022-09-18] MEDS ORDERED: cefTRIAXone 1GM/50ML D5W 50 ML IV ONE (14:30)
[2022-09-18] MEDS ORDERED: FUROSEMIDE 40 MG TAB PO ONE (14:30)
[2022-09-18] MEDS ORDERED: LURA40TA2 PO (16:09)
[2022-09-18] MEDS ORDERED: OLAN1TAB7 PO (16:09)
[2022-09-18] MEDS ORDERED: LEVO125C3 PO (16:09)
[2022-09-18] MEDS ORDERED: ASPI1TAB20 PO (16:09)
[2022-09-18] MEDS ORDERED: ATOR40TA52 PO (16:09)
[2022-09-18] MEDS ORDERED: TRAZ1TAB12 PO (16:09)
[2022-09-18 17:00] VITALS: BP 148/43; PULSE 71; RESP 20; TEMP 97.7; O2SAT 98
[2022-09-18 18:03] LABS: INR 1.01 (0.9-1.15); Partial Thromboplastin Time 21.1 SEC (24.5-34.5); Prothrombin Time 10.6 sec (9.3-11.8)
[2022-09-18 22:00] VITALS: BP 94/56; PULSE 67; RESP 20; TEMP 98.5; O2SAT 97
[2022-09-18] MEDS: metroNIDAZOLE 500MG/100ML 100 ML IV SCH (22:15)
[2022-09-18] MEDS: traZODone HCL 50 MG TAB PO SCH (22:16)
[2022-09-19 05:00] VITALS: BP 99/48; PULSE 61; RESP 16; TEMP 98; O2SAT 94
[2022-09-19] MEDS: metroNIDAZOLE 500MG/100ML 100 ML IV SCH ×3 (05:27→21:50)
[2022-09-19] MEDS: busPIRone HCL 10 MG TAB PO SCH ×3 (05:27→21:50)
[2022-09-19] MEDS: HYDROcodone-ACET 5/325MG TAB PO PRN ×2 (05:28→20:38)
[2022-09-19] MEDS: LEVOTHYROXINE SODIUM 100 MCG TAB PO SCH (07:22)
[2022-09-19 08:00] VITALS: BP 118/58; PULSE 85; RESP 20; TEMP 97.7; O2SAT 96
[2022-09-19 09:00] VITALS: BP 118/58; PULSE 85; RESP 20; TEMP 97.4; O2SAT 96
[2022-09-19] MEDS: cefTRIAXone 1GM/50ML D5W 50 ML IV SCH (09:44)
[2022-09-19] MEDS: OLANZapine 5 MG TAB PO SCH (09:45)
[2022-09-19] MEDS: PANTOPRAZOLE 40 MG TAB PO SCH (09:45)
[2022-09-19] MEDS ORDERED: POTASSIUM CHL 10 Meq TABLET PO SCH (10:00)
[2022-09-19] MEDS ORDERED: FUROSEMIDE 40 MG TAB PO SCH (10:00)
[2022-09-19 10:18] LABS: Basophils # (auto) 0 10 ^3/uL (0-0.2); Basophils % (auto) 0.8 % (0.0-2.0); Eosinophils # (auto) 0.4 10 ^3/uL (0-0.8); Eosinophils % (auto) 7.2 % (0.0-7.0); Hematocrit 42.6 % (36.0-46.0); Lymphocytes % (auto) 34.7 % (10.0-50.0); Mean Corpuscular Hemoglobin 29.4 pg (28.0-32.0); Mean Corpuscular Hgb Conc. 32.7 g/dL (32.0-36.0); Mean Corpuscular Volume 89.7 fL (80.0-100.0); Monocytes # (auto) 0.6 10 ^3/uL (0-1.3); Monocytes % (auto) 10.1 % (0.0-12.0); Neutrophils # (auto) 2.7 10 ^3/uL (1.6-8.6); Neutrophils % (auto) 47.2 % (37.0-80.0); Nucleated Red Blood Cells % 0.1 %; Red Blood Cells 4.75 10^6/uL (4.0-5.20); Red Cell Distribution Width 14.1 % (11.8-14.3); White Blood Cell 5.8 10^3/uL (4.4-10.8)
[2022-09-19 10:57] LABS: Potassium 3.7 mmol/L (3.5-5.1)
[2022-09-19 11:05] LABS: BUN/Creatinine Ratio 19.7 (10.0-20.0); Calcium 8.9 mg/dL (8.5-10.1)
[2022-09-19 12:40] VITALS: BP 102/54; PULSE 68; RESP 18; TEMP 98; O2SAT 99
[2022-09-19 17:00] VITALS: BP 102/44; PULSE 69; RESP 21; TEMP 98.5; O2SAT 93
[2022-09-19] MEDS: traZODone HCL 50 MG TAB PO SCH (21:50)
[2022-09-19 22:00] VITALS: BP 100/52; PULSE 70; RESP 18; TEMP 97.9; O2SAT 91
[2022-09-20] MEDS: HYDROcodone-ACET 5/325MG TAB PO PRN ×2 (04:15→20:49)
[2022-09-20 05:00] VITALS: BP 109/48; PULSE 62; RESP 18; TEMP 97.9; O2SAT 97
[2022-09-20] MEDS: busPIRone HCL 10 MG TAB PO SCH ×3 (05:05→21:29)
[2022-09-20] MEDS: metroNIDAZOLE 500MG/100ML 100 ML IV SCH ×3 (05:05→21:35)
[2022-09-20] MEDS: LEVOTHYROXINE SODIUM 100 MCG TAB PO SCH (06:26)
[2022-09-20 06:37] LABS: Anion Gap 7 (5-15); Blood Urea Nitrogen 25 mg/dL (7-18); Calcium 8.7 mg/dL (8.5-10.1); Carbon Dioxide 26 mmol/L (21-32); Chloride 108 mmol/L (98-107); Glucose 98 mg/dL (74-106); Potassium 3.8 mmol/L (3.5-5.1); Sodium 141 mmol/L (136-145)
[2022-09-20 06:39] LABS: BUN/Creatinine Ratio 19.7 (10.0-20.0); GFR African American 56 mL/min; GFR Non-African American 46 mL/min
[2022-09-20 09:00] VITALS: BP 109/69; PULSE 52; RESP 15; TEMP 98; O2SAT 93
[2022-09-20] MEDS: cefTRIAXone 1GM/50ML D5W 50 ML IV SCH (10:53)
[2022-09-20] MEDS: PANTOPRAZOLE 40 MG TAB PO SCH (10:53)
[2022-09-20] MEDS: OLANZapine 5 MG TAB PO SCH (10:53)
[2022-09-20] MEDS: SODIUM CHLORIDE 0.9% 1,000 ML IV SCH (10:55)
[2022-09-20 11:03] LABS: Basophils # (auto) 0 10 ^3/uL (0-0.2); Basophils % (auto) 0.8 % (0.0-2.0); Eosinophils # (auto) 0.4 10 ^3/uL (0-0.8); Eosinophils % (auto) 7.8 % (0.0-7.0); Hematocrit 44.2 % (36.0-46.0); Hemoglobin 14.8 g/dL (12.2-16.2); Lymphocytes % (auto) 35.4 % (10.0-50.0); Mean Corpuscular Hemoglobin 29.2 pg (28.0-32.0); Mean Corpuscular Hgb Conc. 33.4 g/dL (32.0-36.0); Mean Corpuscular Volume 87.4 fL (80.0-100.0); Monocytes # (auto) 0.4 10 ^3/uL (0-1.3); Monocytes % (auto) 7.5 % (0.0-12.0); Neutrophils # (auto) 2.7 10 ^3/uL (1.6-8.6); Neutrophils % (auto) 48.5 % (37.0-80.0); Nucleated Red Blood Cells % 0.2 %; Red Blood Cells 5.06 10^6/uL (4.0-5.20); Red Cell Distribution Width 13.8 % (11.8-14.3); White Blood Cell 5.6 10^3/uL (4.4-10.8)
[2022-09-20 12:54] VITALS: BP 133/78; PULSE 92; RESP 16; TEMP 98.1; O2SAT 94
[2022-09-20 16:45] VITALS: BP 123/54; PULSE 82; RESP 18; TEMP 98.4; O2SAT 95
[2022-09-20 20:00] VITALS: BP 96/47; PULSE 74; RESP 18; TEMP 98
[2022-09-20 20:10] LABS: BUN/Creatinine Ratio 21.2 (10.0-20.0); Potassium 3.7 mmol/L (3.5-5.1)
[2022-09-20] MEDS: traZODone HCL 50 MG TAB PO SCH (21:27)
[2022-09-20 21:35] VITALS: BP 96/49; PULSE 74; RESP 18; TEMP 98.5; O2SAT 94
[2022-09-21] MEDS: SODIUM CHLORIDE 0.9% 1,000 ML IV SCH (01:40)
[2022-09-21] MEDS: metroNIDAZOLE 500MG/100ML 100 ML IV SCH ×2 (05:18→14:00)
[2022-09-21] MEDS: busPIRone HCL 10 MG TAB PO SCH ×2 (05:18→16:19)
[2022-09-21 05:56] VITALS: BP 98/51; PULSE 73; RESP 18; TEMP 97.7; O2SAT 95
[2022-09-21] MEDS: LEVOTHYROXINE SODIUM 100 MCG TAB PO SCH (06:12)
[2022-09-21 07:30] VITALS: PULSE 80; RESP 18; O2SAT 97
[2022-09-21] MEDS ORDERED: BUPIVACAINE 0.25% INJ 50ML VIAL ONE (08:14)
[2022-09-21] MEDS ORDERED: LIDOCAINE W/ EPINEPHRINE 1% 20ML VIAL ONE (08:14)
[2022-09-21] MEDS ORDERED: levoFLOXacin 500MG 100 ML IV ONE (08:38)
[2022-09-21] MEDS ORDERED: fentaNYL CITRATE 100 MCG/2 ML VL ONE (08:44)
[2022-09-21] MEDS ORDERED: MEPERIDINE HCL (50 MG/ML) 1 ML VIAL ONE (08:45)
[2022-09-21] MEDS ORDERED: ePHEDrine SULFATE 50 MG/ML AMP IV ONE (08:45)
[2022-09-21] MEDS ORDERED: MIDAZOLAM HCL 2MG/2ML 2ml VIAL (1mg/ml) ONE (08:45)
[2022-09-21] MEDS ORDERED: PHENYLEPHRINE HCL 10 MG/ML VL IV ONE (08:45)
[2022-09-21] MEDS ORDERED: SUCCINYLCHOLINE CHLORIDE 20 MG/ML 10ML VIAL IV ONE ×2 (08:47→10:58)
[2022-09-21] MEDS ORDERED: ALBUTEROL SULF 2.5 MG/0.5ML(0.5%) NEB SOLN ONE (09:01)
[2022-09-21] MEDS ORDERED: PROPOFOL 10 MG/ML 20 ML IV ONE (09:10)
[2022-09-21] MEDS ORDERED: DexAMETHasone SOD PHOS 10MG/1ML VIAL INJ ONE (09:10)
[2022-09-21 09:21] VITALS: BP 98/54; PULSE 82; RESP 17; TEMP 97.7; O2SAT 97
[2022-09-21 09:41] VITALS: PULSE 97; RESP 13; O2SAT 97
[2022-09-21] MEDS ORDERED: CEFU500T43 PO (10:00)
[2022-09-21 10:56] LABS: Basophils # (auto) 0 10 ^3/uL (0-0.2); Basophils % (auto) 0.6 % (0.0-2.0); Eosinophils # (auto) 0.4 10 ^3/uL (0-0.8); Eosinophils % (auto) 7.3 % (0.0-7.0); Hematocrit 42.6 % (36.0-46.0); Hemoglobin 13.7 g/dL (12.2-16.2); Lymphocytes # (auto) 1.7 10 ^3/uL (0.4-5.4); Lymphocytes % (auto) 33.3 % (10.0-50.0); Mean Corpuscular Hemoglobin 29.3 pg (28.0-32.0); Mean Corpuscular Hgb Conc. 32.2 g/dL (32.0-36.0); Mean Corpuscular Volume 90.9 fL (80.0-100.0); Monocytes # (auto) 0.4 10 ^3/uL (0-1.3); Monocytes % (auto) 8.2 % (0.0-12.0); Neutrophils # (auto) 2.6 10 ^3/uL (1.6-8.6); Neutrophils % (auto) 50.6 % (37.0-80.0); Nucleated Red Blood Cells % 0.2 %; Red Blood Cells 4.68 10^6/uL (4.0-5.20); Red Cell Distribution Width 14.3 % (11.8-14.3); White Blood Cell 5.1 10^3/uL (4.4-10.8)
[2022-09-21 11:15] LABS: BUN/Creatinine Ratio 19.2 (10.0-20.0); Calcium 8.3 mg/dL (8.5-10.1); Potassium 4.1 mmol/L (3.5-5.1)
[2022-09-21] MEDS ORDERED: SUGAMMADEX 200mg/2ml Vial (100MG/ML) IV ONE (11:15)
[2022-09-21] MEDS: cefTRIAXone 1GM/50ML D5W 50 ML IV SCH (11:28)
[2022-09-21] MEDS: OLANZapine 5 MG TAB PO SCH (12:52)
[2022-09-21] MEDS: PANTOPRAZOLE 40 MG TAB PO SCH (12:52)
[2022-09-21 13:36] VITALS: BP 99/48; PULSE 92; RESP 18; TEMP 98.1; O2SAT 99
[2022-09-21 14:24] VITALS: BP 137/93; PULSE 74; RESP 17; TEMP 98.7; O2SAT 93
[2022-09-22] MEDS ORDERED: LACT10SO3 PO (14:57)
[2022-09-22] MEDS ORDERED: DICY10CA PO (14:57)
[2022-09-22] MEDS ORDERED: ZOFR4T PO (14:57)
== END 2022-09-21 16:00 | disposition home or self-care (01) | DRG 444 ==
LOC: ER 14:35 → OVERFLOW 09-17 03:38 → EAST 09-17 05:35
PROVIDERS: ADMIT Internal Medicine; ATTEND Student in an Organized Health Care Education/Training Program
DX: K80.20 Calculus of gallbladder without cholecystitis without obstruction (principal); I50.31 Acute diastolic (congestive) heart failure; N39.0 Urinary tract infection, site not specified; R30.0 Dysuria; I95.9 Hypotension, unspecified; E03.9 Hypothyroidism, unspecified; F20.9 Schizophrenia, unspecified; J45.909 Unspecified asthma, uncomplicated; F31.9 Bipolar disorder, unspecified; Z79.899 Other long term (current) drug therapy; Z87.891 Personal history of nicotine dependence; Z86.73 Personal history of transient ischemic attack (TIA), and cerebral infarction without residual deficits; Z88.0 Allergy status to penicillin; Z91.040 Latex allergy status; Z90.710 Acquired absence of both cervix and uterus
CPT/HCPCS: 36415; 74176; 78226; 80048; 80053; 80307; 81001; 82533; 83690; 83880; 84443; 85025; 85610; 85730; 86850; 86900; 86901; 87040; 87086; 93005; 93306; 96361; 96372; 96374; G0378; J0330; J0696; J1100; J1956; J2250; J2405; J2704; J3490; Q0162

== ENCOUNTER 2022-09-22 12:19 | Emergency (ER) | payer OTHER, MEDICAID ==
[~2022-09-22] VITALS: Ht 162.6 cm; Wt 90.4 kg
[~2022-09-22 12:19] MED LIST changes: +ASPI1TAB20 PO; -ATOR10TA52 PO; +ATOR40TA52 PO; +CEFU500T43 PO; -CHOL20007 PO; -DICY20TA PO; -DIV250ER PO; -FLUT50SP31 EACHNOSTRI; -LEVO100T8 PO; +LEVO125C3 PO; +LEVO750T8 PO; +LURA40TA2 PO; -MELO7.5T7 PO; -MULT-97 PO; -OLAN1TAB19 PO; +OLAN1TAB7 PO; -OXCA300T4 PO; -PRIM50TA5 PO; -QUET25TA37 PO; -QUET50TA PO; +TRAZ1TAB12 PO; +ZOFR4T PO
[2022-09-22] MEDS ORDERED: ONDANSETRON ODT 4 MG TAB PO ONE (13:15)
[2022-09-22] MEDS ORDERED: KETOROLAC TROMETH 30 MG/ML 1ML VIAL IM ONE (13:15)
[2022-09-22 14:02] LABS: Urine Bacteria FEW /hpf (None Seen); Urine Blood Negative /uL (Negative); Urine Clarity HAZY (Clear); Urine Color Yellow (Yellow); Urine Protein, UAD Negative (Negative); Urine Specific Gravity 1.022 (1.001-1.035); Urine Urobilinogen Normal (Negative); Urine WBC 2 /hpf (0 - 5); Urine pH 6.5 (5.0-8.0)
[2022-09-22 14:14] LABS: Basophils # (auto) 0 10 ^3/uL (0-0.2); Basophils % (auto) 0.3 % (0.0-2.0); Eosinophils # (auto) 0 10 ^3/uL (0-0.8); Eosinophils % (auto) 0.2 % (0.0-7.0); Hematocrit 38.9 % (36.0-46.0); Hemoglobin 12.9 g/dL (12.2-16.2); Lymphocytes # (auto) 1.9 10 ^3/uL (0.4-5.4); Mean Corpuscular Hemoglobin 28.8 pg (28.0-32.0); Mean Corpuscular Hgb Conc. 33.1 g/dL (32.0-36.0); Mean Corpuscular Volume 87.1 fL (80.0-100.0); Monocytes # (auto) 0.7 10 ^3/uL (0-1.3); Monocytes % (auto) 7.6 % (0.0-12.0); Neutrophils # (auto) 6.5 10 ^3/uL (1.6-8.6); Neutrophils % (auto) 70.9 % (37.0-80.0); Red Blood Cells 4.47 10^6/uL (4.0-5.20); Red Cell Distribution Width 13.9 % (11.8-14.3); White Blood Cell 9.2 10^3/uL (4.4-10.8)
[2022-09-22 14:27] LABS: Magnesium 2.3 mg/dL (1.6-2.6)
[2022-09-22 14:35] LABS: Albumin 3.8 g/dL (3.4-5.0); Calcium 8.8 mg/dL (8.5-10.1); Potassium 3.8 mmol/L (3.5-5.1)
[2022-09-22 14:39] LABS: BUN/Creatinine Ratio 21.1 (10.0-20.0); Bilirubin, Total 0.4 mg/dL (0.2-1.0); Total Protein 6.8 g/dL (6.4-8.2)
[2022-09-22] MEDS ORDERED: ZOFR4T PO (14:57)
[2022-09-22] MEDS ORDERED: LACT10SO3 PO (14:57)
[2022-09-22] MEDS ORDERED: DICY10CA PO (14:57)
[2022-09-22] MEDS ORDERED: MAGNESIUM CITRATE SOLUTION 300 ML BTL PO ONE (15:00)
[2022-09-22] MEDS ORDERED: LIDOCAINE VISCOUS 2% 15ML UD PO ONE (15:00)
[2022-09-22] MEDS ORDERED: MAALOX PLUS or MAALOX 30 ML PO ONE (15:00)
[2022-09-22] MEDS ORDERED: DONNATAL 5ml ORAL Elix (BELLADONNA ALK-PHENOBARB) PO ONE (15:00)
[2022-09-22] MEDS ORDERED: LACTULOSE 20Gm/30ML SOLN PO ONE (15:45)
[2022-09-22 15:48] VITALS: BP 102/77; PULSE 83; RESP 18; TEMP 97.5; O2SAT 97
== END 2022-09-22 15:50 | disposition home or self-care (01) ==
LOC: ER 12:19
DX: K80.20 Calculus of gallbladder without cholecystitis without obstruction (principal); K59.00 Constipation, unspecified; J45.909 Unspecified asthma, uncomplicated; E78.5 Hyperlipidemia, unspecified; Z98.51 Tubal ligation status; Z87.891 Personal history of nicotine dependence; Z90.710 Acquired absence of both cervix and uterus; Z86.73 Personal history of transient ischemic attack (TIA), and cerebral infarction without residual deficits; Z79.899 Other long term (current) drug therapy
CPT/HCPCS: 36415; 74021; 76705; 80053; 81001; 83690; 83735; 85025; 96372; 99285; J1885; Q0162

== ENCOUNTER 2022-11-06 10:35 | Inpatient (IN) | payer OTHER, MEDICAID ==
[~2022-11-06] VITALS: Ht 162.6 cm; Wt 92.0 kg
[~2022-11-06 10:35] MED LIST changes: -CEFU500T43 PO; -CEPH250C PO; +CHOL20007 PO; -DICL75TA3 PO; +DICY10CA PO; +DIPH-753 PO; -FURO1TAB31 PO; -HYDR-3682 PO; +HYDR-4902 PO; +HYDR1CAP27 PO; +LEVO750T40 PO; -LEVO750T8 PO; +LITH300C3 PO; -LURA40TA2 PO; +MELA1TAB14 PO; +MULTTAB99 PO; -NITR-87 PO; -OLAN1TAB7 PO; +QUET100T47 PO; +TOPI25TA84 PO; -TRAZ1TAB12 PO
[2022-11-06 11:26] LABS: Basophils # (auto) 0 10 ^3/uL (0-0.2); Basophils % (auto) 0.4 % (0.0-2.0); Eosinophils # (auto) 0.8 10 ^3/uL (0-0.8); Eosinophils % (auto) 7.7 % (0.0-7.0); Hematocrit 36.4 % (36.0-46.0); Hemoglobin 12.4 g/dL (12.2-16.2); Lymphocytes # (auto) 2.6 10 ^3/uL (0.4-5.4); Lymphocytes % (auto) 25.4 % (10.0-50.0); Mean Corpuscular Hemoglobin 29.6 pg (28.0-32.0); Mean Corpuscular Volume 87.1 fL (80.0-100.0); Monocytes # (auto) 0.5 10 ^3/uL (0-1.3); Monocytes % (auto) 5.4 % (0.0-12.0); Neutrophils # (auto) 6.2 10 ^3/uL (1.6-8.6); Neutrophils % (auto) 61.1 % (37.0-80.0); Nucleated Red Blood Cells % 0.1 %; Red Blood Cells 4.18 10^6/uL (4.0-5.20); Red Cell Distribution Width 15.5 % (11.8-14.3); White Blood Cell 10.1 10^3/uL (4.4-10.8)
[2022-11-06 11:51] LABS: Alanine Aminotransferase 20 U/L (7-40); Alkaline Phosphatase 131 U/L (46-116); Calcium 9.2 mg/dL (8.7-10.4); Carbon Dioxide 23 mmol/L (20-30); Chloride 113 mmol/L (98-107)
[2022-11-06 11:52] LABS: Anion Gap 6 (5-15); Aspartate Aminotransferase 11 U/L (13-40); BUN/Creatinine Ratio 11.6 (10.0-20.0); Bilirubin, Total 0.3 mg/dL (0.2-1.0); Blood Urea Nitrogen 10 mg/dL (9-23); Glucose 113 mg/dL (74-106); Lipase 57 U/L (12-53); Sodium 142 mmol/L (136-145); Total Protein 6.5 g/dL (5.7-8.2)
[2022-11-06] MEDS ORDERED: VANCOMYCIN 1GM/250ML 250 ML IV ONE (12:15)
[2022-11-06] MEDS ORDERED: FAMOTIDINE (10MG/ML) 2ML VL IV ONE (12:15)
[2022-11-06] MEDS ORDERED: diphenhdrAMINE HCL 50 MG/1 ML VL IV ONE (12:15)
[2022-11-06 12:43] LABS: Bilirubin, Direct 0.1 mg/dL (<0.3)
[2022-11-06] MEDS ORDERED: MORPHINE SULFATE INJ 2 MG/ml SYRG IV PRN (14:45)
[2022-11-06] MEDS ORDERED: ONDANSETRON HCL 4 MG/2 ML VIAL IV PRN (14:45)
[2022-11-06] MEDS ORDERED: ACETAMINOPHEN 325 MG TAB PO PRN (14:45)
[2022-11-06] MEDS ORDERED: DOCUSATE SOD 100 MG CAP PO PRN (14:45)
[2022-11-06 15:00] VITALS: PULSE 64; RESP 18; O2SAT 96
[2022-11-06] MEDS ORDERED: diphenhdrAMINE HCL 25 MG CAP PO PRN (15:00)
[2022-11-06] MEDS ORDERED: hydrOXYzine 25 MG TAB or CAP PO PRN (15:00)
[2022-11-06] MEDS: hydrOXYzine 25 MG TAB or CAP PO PRN (16:19)
[2022-11-06] MEDS ORDERED: ARIPIPRAZOLE 400 MG IM SCH (16:45)
[2022-11-06] MEDS ORDERED: methylPREDNISolone SOD SUCC 40 MG/ML VL IV ONE (17:15)
[2022-11-06 18:48] LABS: Erythrocyte Sedimentation Rate 12 mm/hr (0-20)
[2022-11-06 21:06] VITALS: BP 110/39; PULSE 64; RESP 18; TEMP 98.8; O2SAT 96
[2022-11-06 22:00] VITALS: BP 110/39; PULSE 64; RESP 18; TEMP 98.8; O2SAT 96
[2022-11-06] MEDS: MELATONIN 5 MG TAB PO SCH (22:22)
[2022-11-06] MEDS: busPIRone HCL 10 MG TAB PO SCH (22:23)
[2022-11-06] MEDS: LITHIUM CARBONATE 300 MG TAB PO SCH (22:23)
[2022-11-06] MEDS: QUEtiapine FUMARATE 100 MG TAB PO SCH (22:23)
[2022-11-06] MEDS: ATORVASTATIN 20 MG TAB PO SCH (22:24)
[2022-11-06] MEDS: TOPIRAMATE 25 MG TAB PO SCH (22:24)
[2022-11-06] MEDS: HYDROcodone-ACET 5/325MG TAB PO PRN (22:26)
[2022-11-06] MEDS: methylPREDNISolone SOD SUCC 40 MG/ML VL IV SCH (22:30)
[2022-11-07] VITALS (7 sets, daily range): BP systolic 88–117; BP diastolic 42–67; PULSE 51–69; RESP 17–20; TEMP 98–98.8; O2SAT 96–97
[2022-11-07] MEDS: hydrOXYzine 25 MG TAB or CAP PO PRN (00:49)
[2022-11-07] MEDS: busPIRone HCL 10 MG TAB PO SCH ×3 (06:50→21:56)
[2022-11-07] MEDS: LEVOTHYROXINE SODIUM 50 MCG TAB PO SCH (06:50)
[2022-11-07 07:15] LABS: Basophils # (auto) 0 10 ^3/uL (0-0.2); Basophils % (auto) 0.1 % (0.0-2.0); Eosinophils # (auto) 0 10 ^3/uL (0-0.8); Eosinophils % (auto) 0.1 % (0.0-7.0); Hemoglobin 11.9 g/dL (12.2-16.2); Lymphocytes # (auto) 1.7 10 ^3/uL (0.4-5.4); Lymphocytes % (auto) 17.5 % (10.0-50.0); Mean Corpuscular Hemoglobin 29.4 pg (28.0-32.0); Mean Corpuscular Volume 86.5 fL (80.0-100.0); Monocytes # (auto) 0.2 10 ^3/uL (0-1.3); Monocytes % (auto) 2.2 % (0.0-12.0); Neutrophils # (auto) 7.7 10 ^3/uL (1.6-8.6); Neutrophils % (auto) 80.1 % (37.0-80.0); Nucleated Red Blood Cells % 0.1 %; Red Blood Cells 4.05 10^6/uL (4.0-5.20); Red Cell Distribution Width 15.7 % (11.8-14.3); White Blood Cell 9.6 10^3/uL (4.4-10.8)
[2022-11-07 07:30] LABS: Alanine Aminotransferase 16 U/L (7-40); Albumin 3.8 g/dL (3.2-4.8); Alkaline Phosphatase 107 U/L (46-116); Anion Gap 5 (5-15); Aspartate Aminotransferase 10 U/L (13-40); BUN/Creatinine Ratio 11.2 (10.0-20.0); Blood Urea Nitrogen 10 mg/dL (9-23); Calcium 9.3 mg/dL (8.7-10.4); Carbon Dioxide 23 mmol/L (20-30); Chloride 113 mmol/L (98-107); Glucose 160 mg/dL (74-106); Potassium 3.9 mmol/L (3.5-5.1); Sodium 141 mmol/L (136-145)
[2022-11-07 07:31] LABS: Bilirubin, Total 0.3 mg/dL (0.2-1.0); Total Protein 6.3 g/dL (5.7-8.2)
[2022-11-07] MEDS ORDERED: cefTRIAXone 1GM/50ML D5W 50 ML IV SCH (09:00)
[2022-11-07] MEDS: OXYBUTYNIN CHL 5 MG TAB PO SCH (09:11)
[2022-11-07] MEDS: methylPREDNISolone SOD SUCC 40 MG/ML VL IV SCH ×3 (09:11→22:03)
[2022-11-07] MEDS: MULTIPLE VITAMIN TAB PO SCH (09:11)
[2022-11-07] MEDS: ASPirin-EC 81 mg tab PO SCH (09:11)
[2022-11-07] MEDS: TOPIRAMATE 25 MG TAB PO SCH ×2 (09:11→21:54)
[2022-11-07] MEDS ORDERED: PANTOPRAZOLE 40 MG TAB PO SCH (10:00)
[2022-11-07] MEDS: LITHIUM CARBONATE 300 MG TAB PO SCH ×2 (14:37→21:55)
[2022-11-07] MEDS: diphenhdrAMINE HCL 50 MG/1 ML VL IV PRN (18:39)
[2022-11-07] MEDS: MELATONIN 5 MG TAB PO SCH (21:54)
[2022-11-07] MEDS: ATORVASTATIN 20 MG TAB PO SCH (21:55)
[2022-11-07] MEDS: QUEtiapine FUMARATE 100 MG TAB PO SCH (21:55)
[2022-11-08] MEDS: diphenhdrAMINE HCL 50 MG/1 ML VL IV PRN (01:13)
[2022-11-08] MEDS: HYDROcodone-ACET 5/325MG TAB PO PRN (04:39)
[2022-11-08 05:23] VITALS: BP 110/64; PULSE 69; RESP 16; TEMP 97.8; O2SAT 96
[2022-11-08] MEDS: busPIRone HCL 10 MG TAB PO SCH ×2 (05:35→12:32)
[2022-11-08] MEDS: LEVOTHYROXINE SODIUM 50 MCG TAB PO SCH (05:35)
[2022-11-08] MEDS: methylPREDNISolone SOD SUCC 40 MG/ML VL IV SCH ×2 (05:38→12:32)
[2022-11-08 08:00] VITALS: PULSE 60; RESP 18; O2SAT 98
[2022-11-08] MEDS: ASPirin-EC 81 mg tab PO SCH (08:52)
[2022-11-08] MEDS: TOPIRAMATE 25 MG TAB PO SCH (08:53)
[2022-11-08] MEDS: LITHIUM CARBONATE 300 MG TAB PO SCH (08:53)
[2022-11-08] MEDS: MULTIPLE VITAMIN TAB PO SCH (08:53)
[2022-11-08] MEDS: OXYBUTYNIN CHL 5 MG TAB PO SCH (08:53)
[2022-11-08 09:00] VITALS: BP 82/35; PULSE 52; RESP 16; TEMP 98.1; O2SAT 96
[2022-11-08] MEDS ORDERED: METH4PAK PO ×3 (11:23→11:25)
[2022-11-08] MEDS ORDERED: DIPH25CA66 PO ×3 (11:23→11:25)
[2022-11-08 13:00] VITALS: BP 90/54; PULSE 54; RESP 20; TEMP 98.1; O2SAT 96
== END 2022-11-08 16:15 | disposition home or self-care (01) | DRG 607 ==
LOC: ER 10:35 → OVERFLOW 14:38 → WEST WING 21:11
PROVIDERS: ADMIT Nurse Practitioner Family; ATTEND Family Medicine
DX: R21 Rash and other nonspecific skin eruption (principal); T78.40XA Allergy, unspecified, initial encounter; E03.9 Hypothyroidism, unspecified; I50.9 Heart failure, unspecified; F20.9 Schizophrenia, unspecified; E78.5 Hyperlipidemia, unspecified; F31.9 Bipolar disorder, unspecified; J45.909 Unspecified asthma, uncomplicated; F41.9 Anxiety disorder, unspecified; Z90.49 Acquired absence of other specified parts of digestive tract; Z88.0 Allergy status to penicillin; Z88.1 Allergy status to other antibiotic agents; Z91.040 Latex allergy status; Z91.011 Allergy to milk products; Z90.710 Acquired absence of both cervix and uterus; Z87.891 Personal history of nicotine dependence; Z86.73 Personal history of transient ischemic attack (TIA), and cerebral infarction without residual deficits
CPT/HCPCS: 36415; 74176; 76705; 80053; 80178; 82248; 83690; 84484; 85025; 85652; 86141; 87081; 96365; 96375; G0378; J3490

== ENCOUNTER → 2022-12-01 | Outpatient (CLI) | payer OTHER, MEDICAID ==
[~2022-12-01] MED LIST changes: -DICY10CA PO; -DIPH-753 PO; +DIPH25CA66 PO; -LEVO125C3 PO; -LEVO750T40 PO; +METH4PAK PO
[2022-12-01 09:05] LABS: Basophils # (auto) 0 10 ^3/uL (0-0.2); Basophils % (auto) 0.5 % (0.0-2.0); Eosinophils # (auto) 0.5 10 ^3/uL (0-0.8); Eosinophils % (auto) 6.7 % (0.0-7.0); Hemoglobin 14.2 g/dL (12.2-16.2); Lymphocytes # (auto) 1.8 10 ^3/uL (0.4-5.4); Lymphocytes % (auto) 25.1 % (10.0-50.0); Mean Corpuscular Hgb Conc. 32.9 g/dL (32.0-36.0); Mean Corpuscular Volume 91.2 fL (80.0-100.0); Monocytes # (auto) 0.3 10 ^3/uL (0-1.3); Monocytes % (auto) 4.2 % (0.0-12.0); Neutrophils # (auto) 4.6 10 ^3/uL (1.6-8.6); Neutrophils % (auto) 63.5 % (37.0-80.0); Nucleated Red Blood Cells % 0.2 %; Red Blood Cells 4.72 10^6/uL (4.0-5.20); Red Cell Distribution Width 17.2 % (11.8-14.3); White Blood Cell 7.3 10^3/uL (4.4-10.8)
[2022-12-01 09:29] LABS: Triglycerides 107 mg/dL (< 150)
[2022-12-01 09:30] LABS: Alanine Aminotransferase 34 U/L (7-40); Albumin 4.6 g/dL (3.2-4.8); Alkaline Phosphatase 112 U/L (46-116); Anion Gap 7 (5-15); Aspartate Aminotransferase 26 U/L (13-40); BUN/Creatinine Ratio 5.2 (10.0-20.0); Blood Urea Nitrogen 6 mg/dL (9-23); Calcium 9.9 mg/dL (8.5-10.1); Carbon Dioxide 23 mmol/L (20-30); Chloride 110 mmol/L (98-107); Cholesterol 132 mg/dL (< 200); Glucose 95 mg/dL (74-106); HDL Cholesterol 61 mg/dL (40-59); LDL Cholesterol 52 mg/dL (< 100); Potassium 3.8 mmol/L (3.5-5.1); Sodium 140 mmol/L (136-145)
[2022-12-01 09:31] LABS: Bilirubin, Total 0.7 mg/dL (0.2-1.0); Total Protein 7.4 g/dL (5.7-8.2)
== END | disposition home or self-care (01) ==
LOC: LAB 08:40
PROVIDERS: ATTEND Student in an Organized Health Care Education/Training Program
DX: Z00.01 Encounter for general adult medical examination with abnormal findings (principal); I10 Essential (primary) hypertension; E03.9 Hypothyroidism, unspecified; R20.9 Unspecified disturbances of skin sensation
CPT/HCPCS: 36415; 80053; 80061; 84439; 84443; 85025

== ENCOUNTER → 2023-03-02 | Outpatient (CLI) | payer OTHER ==
[~2023-03-02] VITALS: Ht 162.6 cm; Wt 75.7 kg
== END | disposition home or self-care (01) ==
LOC: Rad HDHVI 09:58
PROVIDERS: ATTEND Internal Medicine Cardiovascular Disease
DX: I50.9 Heart failure, unspecified (principal); R00.0 Tachycardia, unspecified; E78.00 Pure hypercholesterolemia, unspecified; Z86.73 Personal history of transient ischemic attack (TIA), and cerebral infarction without residual deficits
CPT/HCPCS: 78452; 93017; 96374; A9500

== ENCOUNTER → 2024-01-29 | Outpatient (CLI) | payer OTHER, MEDICAID ==
[~2024-01-29] MED LIST changes: -DIPH25CA66 PO; -HYDR-4902 PO; -HYDR1CAP27 PO; +IBUP-1456 PO; +LEVO137T3 PO; -LITH300C3 PO; -METH4PAK PO; -OXYB5TAB10 PO; +OXYB5TAB14 PO; -QUET100T47 PO; +TRAZ-227 PO; +TRAZ-228 PO; -ZOFR4T PO
--- NOTE | 2024-01-31 10:35 | DVHSR ---
APPROVED REPORT EXAM: Two-dimensional and M-mode echocardiogram with Doppler and color Doppler. DIMENSIONS LVDd4.7 (3.8-5.7cm)LA (2D)4.0 (1.9-4.0cm)Aortic Root2.7 (2.0-3.7cm) LVDs2.9 (2.5-4.0cm)LA (MM) (1.9-4.0cm)Aortic Cusp Exc1.6 (1.5-2.0cm) EF (%) 67.1 (55-70%)Rt. Atrium3.8 (1.9-4.0cm)Asc. Aorta cm IVSd0.9 (0.7-1.1cm)RV (D)2.2 (1.8-2.4cm) PWd0.9 (0.7-1.1cm) Mitral Valve MitralMitral Stenosis E wave0.89m/sMV Mean GR.mmHg A wave0.40m/sMV Peak GR.17mmHg E/A ratio2.22D MVAcm2 DECEL [id number] 1/2 [place] Aortic Valve Aortic ValveAortic Stenosis V10.84m/Rony Mean GR.3mmHg V21.28m/Rony Peak GR.7mmHg Pulmonic Valve V20.67m/s Tricuspid Valve TR Velocity1.78m/s [id number] LEFT VENTRICLE The Ejection Fraction is >55%. ATRIA The left atrial size is normal. The right atrium size is normal. MITRAL VALVE Mitral annular calcification is mild. Mitral regurgitation is trace to mild. PULMONIC VALVE The pulmonic valve is not well visualized. TRICUSPID VALVE The tricuspid valve is grossly normal. There is trace tricuspid regurgitation. AORTIC VALVE The aortic valve opens well. No aortic regurgitation is present. GREAT VESSELS The aortic root is normal size. PERICARDIAL EFFUSION There is no pericardial effusion. Conclusion EF >55% MILD TR. MR
== END | disposition home or self-care (01) ==
LOC: Rad HDHVI 10:58
PROVIDERS: ATTEND Internal Medicine Cardiovascular Disease
DX: I34.0 Nonrheumatic mitral (valve) insufficiency (principal); I50.23 Acute on chronic systolic (congestive) heart failure
CPT/HCPCS: 93306

== ENCOUNTER 2024-08-05 07:13 | Outpatient (CLI) | payer OTHER, MEDICAID ==
[2024-08-05 08:02] LABS: Basophils # (auto) 0 10 ^3/uL (0-0.2); Basophils % (auto) 0.6 % (0.0-2.0); Eosinophils # (auto) 0.3 10 ^3/uL (0-0.8); Eosinophils % (auto) 5.1 % (0.0-7.0); Hematocrit 41.4 % (36.0-46.0); Hemoglobin 14.1 g/dL (12.2-16.2); Lymphocytes # (auto) 2.4 10 ^3/uL (0.4-5.4); Lymphocytes % (auto) 40.1 % (10.0-50.0); Mean Corpuscular Volume 88.1 fL (80.0-100.0); Monocytes # (auto) 0.4 10 ^3/uL (0-1.3); Monocytes % (auto) 7.5 % (0.0-12.0); Neutrophils # (auto) 2.7 10 ^3/uL (1.6-8.6); Neutrophils % (auto) 46.7 % (37.0-80.0); Nucleated Red Blood Cells % 0.1 %; Platelet Count (auto) 140 10^3/uL (140-450); Red Cell Distribution Width 14.5 % (11.8-14.3); White Blood Cell 5.9 10^3/uL (4.4-10.8)
[2024-08-05 08:32] LABS: Alanine Aminotransferase 19 U/L (7-40); Albumin 4.3 g/dL (3.2-4.8); Anion Gap 11 (5-15); Aspartate Aminotransferase 24 U/L (<34); BUN/Creatinine Ratio 10.4 (10.0-20.0); Blood Urea Nitrogen 10 mg/dL (9-23); Calcium 9.7 mg/dL (8.7-10.4); Carbon Dioxide 21 mmol/L (20-31); Cholesterol 111 mg/dL (< 200); Glucose 83 mg/dL (74-106); HDL Cholesterol 47 mg/dL (40-59); LDL Cholesterol 50 mg/dL (< 100); Sodium 143 mmol/L (136-145); Total Protein 6.8 g/dL (5.7-8.2); Triglycerides 119 mg/dL (< 150)
[2024-08-05 08:33] LABS: Bilirubin, Total 0.6 mg/dL (0.2-1.0)
[2024-08-05 08:37] LABS: Alkaline Phosphatase 128 U/L (46-116); Chloride 111 mmol/L (98-107); Potassium 3.3 mmol/L (3.5-5.1)
[2024-08-06 11:05] LABS: Hepatitis B Surface Antigen Negative (Negative); Hepatitis C Antibody Negative (Negative)
== END 2024-08-05 17:00 | disposition home or self-care (01) ==
LOC: LAB 07:13
PROVIDERS: ATTEND Internal Medicine Gastroenterology
DX: R94.5 Abnormal results of liver function studies (principal); I50.23 Acute on chronic systolic (congestive) heart failure; Z79.899 Other long term (current) drug therapy
CPT/HCPCS: 36415; 80053; 80061; 82728; 83036; 85025; 86038; 86803; 87340